=== PATIENT | female | born 1965 | race Caucasian/White ===

== ENCOUNTER 2023-04-20 08:27 | Outpatient (OUT) | payer OTHER, SELFPAY ==
[2023-04-20 09:24] LABS: Basophils Percent Auto 0.5 % (0.2-2.0); Eosinophils Absolute Auto 0.4 10^3/uL (0.0-0.7); Eosinophils Percent Auto 4.9 % (0.9-7.0); Hemoglobin 14.2 g/dL (12.0-16.0); Immature Granulocytes Abs Auto 0.02 10^3/uL (0.00-0.03); Immature Granulocytes Pct Auto 0.3 % (0.0-0.5); Lymphocytes Absolute Auto 2.1 10^3/uL (1.2-3.8); Lymphocytes Percent Auto 26.7 % (20.5-60.0); Mean Corpuscular Hemoglobin 30.3 pg (26.7-34.0); Mean Corpuscular Volume 91.7 fL (81.0-99.0); Mean Platelet Volume 10.1 fL (9.5-13.5); Monocytes Absolute Auto 0.5 10^3/uL (0.3-0.8); Monocytes Percent Auto 6.5 % (1.7-12.0); Neutrophils Absolute Auto 4.9 10^3/uL (1.4-6.5); Neutrophils Percent Auto 61.1 % (43.0-75.0); Platelet Count 324 10^3/uL (150-450); Red Blood Count 4.69 10^6/uL (4.20-5.40); Red Cell Distribution Width 12.4 % (11.0-15.0)
[2023-04-20 10:12] LABS: Alanine Aminotransferase 45 U/L (14-59); Albumin Globulin Ratio 0.9; Albumin Level 3.4 g/dL (3.4-5.0); Alkaline Phosphatase 95 U/L (46-116); Anion Gap 9.3; Aspartate Amino Transferase 27 U/L (15-37); BUN Creatinine Ratio 20.3; Bilirubin Total 0.4 mg/dL (0.2-1.0); Calcium 8.8 mg/dL (8.5-10.1); Carbon Dioxide 29.7 mmol/L (21.0-32.0); Chloride 100 mmol/L (98-107); Chol HDL Ratio 2.8; Cholesterol 159 mg/dL (<=200); Estimated GFR (African America >60 (>=60); Estimated GFR (Non-African Ame >60 (>=60); Globulin 3.7 g/dL; Glucose 110 mg/dL (74-106); HDL Cholesterol 56 mg/dL (40-60); LDL Cholesterol Calculated 83.8 mg/dL; Sodium 135 mmol/L (136-145); Thyroid Stimulating Hormone 2.327 uIU/mL (0.358-3.740); Total Protein 7.1 g/dL (6.4-8.2); Triglycerides 96 mg/dL (<=150); VLDL CHOLESTEROL 19.2 mg/dL
== END 2023-04-20 08:28 | disposition home or self-care (01) ==
LOC: LAB 08:33
PROVIDERS: PCP Internal Medicine; Visit Provider Internal Medicine
DX: Z00.00 Encounter for general adult medical examination without abnormal findings (principal)
CPT/HCPCS: 36415; 80053; 80061; 84443; 85025

== ENCOUNTER 2024-05-23 09:05 | Outpatient (OUT) | payer OTHER, SELFPAY ==
--- OUTSIDE RECORDS SUMMARY | 2024-05-23 09:08 | XMS_ITS | CCD ---
Author Organization [facility] Care Team Providers Care Internal Communications Writer Name Role Phone HUBER PINA Primary Care Physician RONNIEOTTO Admitting Unavailable RONNIEOTTO Attending Unavailable BALL, DR NGO Primary Care Unavailable BALL, DR NGO Admitting Unavailable BALL, DR NGO Attending Unavailable BALL, DR NGO Primary Care Unavailable BALL, DR NGO Consulting Unavailable BALL, DR NGO Admitting Unavailable BALL, DR NGO Attending Unavailable BALL, DR NGO Referring Unavailable BALL, DR NGO Primary Care Unavailable BALL, DR NGO Consulting Unavailable Ball, DO Huber Primary Care Provider [phone] Yovani, DO Ngo Other Provider Rinkes, DO Disha Attending Provider Huber Pina Unavailable Ball, DO Huber Primary Care Provider Yovani, DO Ngo Other Provider Rinkes, DO Disha Attending Provider Rinkes, DO Disha Referring Provider Disha Walker Attending Unavailable Rinsimi, Disha Referring Unavailable Ball, Huber Primary Care Unavailable Ball, Huebr Consulting Unavailable Rinkes, Disha Admitting Unavailable Ball, Huber Primary Care Unavailable Rinkes, Disha Admitting Unavailable Rinkes, Disha Attending Unavailable RINSIMI, DISHA E Attending Unavailable ORCK, DISHA E Referring Unavailable Allergies Allergy Classification Reported Allergen(s) Allergy Type Date of Onset Reaction(s) Facility (12 sources) Morphine; Translations: [morphine] Drug Allergy 1 Rash, Unknown [facility] (5 sources) Morphine Sulfate (Concentrate) *ANALGESICS - OPIOI Propensity to adverse reactions Unknown [employer] Other (5 sources) patient allergy list reviewed by nurse or physicia Propensity to adverse reactions Comment:Done [employer] Other (1 source) Morphine Drug Allergy [facility] Repository Medications Current Medications Medication Drug Class(es) Dates Sig (Normalized) Sig (Original) amitriptyline hydrochloride 50 mg oral tablet (2 sources) Tricyclic Antidepressant Start: 08-07-2011 take 1 tablet by mouth once daily at bedtime amitriptyline 50 mg Tab 50 mg = 1 tab(s), Oral, Once a day (at bedtime), # 30 tab(s), Refills(s) 0 Start Date: 08/07/11 Status: Ordered atorvastatin 40 mg oral tablet (9 sources) HMG-CoA Reductase Inhibitor Start: 12-26-2022 take 1 tablet by mouth every twenty-four hours Atorvastatin Calcium 40 MG 1 tablet Orally Once a day for 30 days Nov, Active B-12 1000 MCG (9 sources) take 1 tablet under the tongue once daily B-12 1000 MCG 1 tablet under the tongue and allow to dissolve Sublingual Once a day Active black cohosh extract 540 mg oral capsule (3 sources) Black Cohosh 540 MG as directed Orally Active estrogens, conjugated (nursing home) 0.45 mg oral tablet (4 sources) Estrogen Start: 07-15-2020 take 1 tablet by mouth once daily Conjugated Estrogens (Premarin) 0.45 mg tablet Active 0.45 MG PO Daily July 15, 2020 1:00am 1.5 ml fremanezumab-vfrm 150 mg/ml prefilled syringe (9 sources) Ajovy 225 MG/1.5 ML 1.5 mL Subcutaneous Active 24 hr propranolol hydrochloride 60 mg extended release oral capsule (4 sources) beta-Adrenergic Les Start: 07-15-2020 take 60 mg by mouth once daily Propranolol Active 60 MG PO Daily July 15, 2020 1:00am SUMAtriptan 100 mg oral tablet (12 sources) Serotonin-1b and Serotonin-1d Receptor Agonist Start: 08-07-2011 take 100 mg by mouth once daily Sumatriptan Succinate Active 100 MG PO Daily July 15, 2020 1:00am topiramate 100 mg oral tablet (2 sources) Start: 08-07-2011 take 1 tablet by mouth once daily Topamax 100 mg Tab 100 mg = 1 tab(s), Oral, Daily, # 30 tab(s), Refills(s) 0 Start Date: 08/07/11 Status: Ordered Completed/Discontinued Medications Medication Drug Class(es) Dates Sig (Normalized) Sig (Original) {1 (ascorbic acid 7540 MG / polyethylene glycol 3350 43887 MG / potassium chloride 1200 MG / sodium ascorbate 81907 MG / sodium chloride 3200 MG Powder for Oral Solution) / 1 (polyethylene glycol 3350 576429 MG / potassium chloride 1000 MG / sodium chloride 2000 MG / sodium sulfate 9000 MG Powder for Oral Solution) } Pack [Plenvu] (9 sources) Osmotic Laxative, Vitamin C Start: 06-15-2020 Plenvu 140 GM dose 1 pouch at 4pm, dose 2 pouch A & B at 11pm Orally BID for 1 days BIN:[id number] PCN: [id number] GROUP:[id number] ID:[id number] May, Not-Taking azithromycin 250 mg oral tablet (8 sources) Macrolide Antimicrobial Start: 03-20-2023 Azithromycin 250 MG as directed Orally daily for 5 days Mar, Not-Taking estradiol 0.5 mg oral tablet (9 sources) Estrogen take 1 tablet by mouth every twenty-four hours Estradiol 0.5 MG 1 tablet Orally Once a day Not-Taking metoclopramide 10 mg oral tablet (2 sources) Dopamine-2 Receptor Antagonist Start: 08-07-2011 End: 08-10-2011 take 1 tablet by mouth four times daily Reglan 10 mg Tab 10 mg = 1 tab(s), Oral, QID, # 12 tab(s), Refills(s) 0, 0, Print Requisition Start Date: 08/07/11 Stop Date: 08/10/11 Status: Ordered predniSONE 20 mg oral tablet (17 sources) Start: 01-11-2023 predniSONE 20 MG 1 tablet Orally tid w/ food x 3 days, then bid w/ food x 3 days then qd w/ food x 3 days for 9 days Jan, Not-Taking triamcinolone acetonide 40 mg/ml injectable suspension (9 sources) Corticosteroid Start: 01-11-2023 Kenalog-40 Dec, 60 mg Problems Active Problems Problem Classification Problem Date Documented Da te Episodic/Chronic Acute bronchitis (1 source) Acute bronchitis due to other specified organisms Episodic Allergic reactions (20 sources) Allergic contact dermatitis due to plants, except food; Translations: [Allergic contact dermatitis due to plants, except food] Onset: 12-04-2017 Episodic Disorders of lipid metabolism (20 sources) Pure hypercholesterolemi a, unspecified; Translations: [Hypercholesterolem ia] Onset: 07-12-2021 Chronic Headache; including migraine (20 sources) Migraine; Translations: [Migraine aura without headache ] Onset: 08-09-2017 09-11-2013 Chronic Malaise and fatigue (15 sources) Other fatigue; Translations: [Fatigue] Onset: 07-17-2021 Episodic Menopausal disorders (19 sources) Menopausal symptom; Translations: [Menopausal and female climacteric states] Onset: 08-09-2017 Chronic Other and unspecified benign neoplasm (17 sources) Polyp of colon; Translations: [Polyp of colon] Episodic Other and unspecified benign neoplasm (9 sources) Lipoma of left lower limb; Translations: [Benign lipomatous neoplasm of skin and subcutaneous tissue of left leg] Episodic Other and unspecified benign neoplasm (5 sources) Benign lipomatous tumor; Translations: [Benign lipomatous neoplasm of skin and subcutaneous tissue of left leg] Episodic Other and unspecified benign neoplasm (1 source) Polyp of colon Episodic Other gastrointestinal disorders (4 sources) Stool DNA-based colorectal cancer screening positive; Translations: [Other fecal abnormalities] 07-15-2020 Episodic Other gastrointestinal disorders (5 sources) Abnormal feces; Translations: [Other fecal abnormalities] Episodic Other nutritional; endocrine; and metabolic disorders (5 sources) Overweight; Translations: [Overweight] Episodic Unclassified (1 source) ELEV LVLS LIVER TRANSAMINASE LVLS; Translations: [ELEV LVLS LIVER TRANSAMINASE LVLS] Onset: 07-17-2021 Unclassified (5 sources) Elevation of levels of liver transaminase levels; Translations: [Elevation of levels of liver transaminase levels] Unclassified (1 source) Encounter for screening mammogram for malignant neoplasm of breast; Translations: [Encounter for screening mammogram for malignant neoplasm of breast] Onset: 04-25-2023 Past or Other Problems Problem Classification Problem Date Documented Date Episodic/Chronic Inflammation; infection of eye (except that caused by tuberculosis or sexually transmitteddisease) (5 sources) Viral pharyngoconjunctivitis ; Translations: [Viral pharyngoconjunctivitis] Onset: 03-08-20 19 Episodic Open wounds of extremities (5 sources) Laceration of lower leg; Translations: [Laceration without foreign body, right lower leg, subsequent encounter] Resolved : 04-14-20 Episodic Other nutritional; endocrine; and metabolic disorders (20 sources) Body mass index 25-29 - overweight; Translations: [Body mass index 25.0-25.9, adult] Onset: 08-09-19 18 Episodic Other screening for suspected conditions (not mental disorders or infectious disease) (2 sources) Encounter for screening mammogram for malignant neoplasm of breast; Translations: [Other abnormal and inconclusive findings on diagnostic imaging of breast] Onset: 04-30-20 Episodic Residual codes; unclassified (5 sources) Flushing; Translations: [Flushing] Onset: 10-10-19 Episodic Skin and subcutaneous tissue infections (5 sources) Cellulitis of right lower limb; Translations: [Cellulitis of right lower limb] Resolved : 04-14-20 Episodic Spondylosis; intervertebral disc disorders; other back problems (5 sources) Low back pain; Translations: [Low back pain, unspecified] Resolved : 04-14-20 Episodic Sprains and strains (5 sources) Strain of tendon of foot and ankle; Translations: [Strain of unspecified muscle and tendon at ankle and foot level, left foot, subsequent encounter] Resolved : 04-14-20 Episodic Superficial injury; contusion (5 sources) Abrasion, lower leg; Translations: [Abrasion, right lower leg, subsequent encounter] Resolved : 04-14-20 Episodic Unclassified (9 sources) Elevated transaminase level; Translations: [Elevated transaminase level] Unclassified (5 sources) Genetic counseling; Translations: [Genetic counseling] Onset: 08-09-19 Results Test Name Value Interpretation Reference Range Facility MM screening mammo BI w/CADo n 04-25-2023 MM screening mammo BI w/CAD [facility] [place] [address] Mammography Report Signed Patient: Urmila Wu MR#: [id number] : 1965 Acct:[id number] Age/Sex: 57 / F ADM Date: 04/25/23 Loc: [place] Room: Type: [facility] Attending Dr: Disha Walker DO Copies to: Huber DO Disha Pina DO Ordering Provider: Disha Walker DO Date of Service: 04/25/23 MM/MM screening mammo BI w/CAD: screening;Breast cancer screening CLINICAL DATA: Screening for malignancy. SCREENING MAMMOGRAM - FULL FIELD DIGITAL WITH TOMOSYNTHESIS AND CAD COMPARISON:Mammograms dating back to 2019 Tomosynthesis craniocaudal and mediolateral oblique views of both breasts were obtained using low- dose digital technique. This examination was reviewed with the aid of CAD. The breast parenchyma is heterogeneously dense. There are no dominant masses, typically malignant calcifications or architectural distortion. There has been no significant interval change. MM/MM screening mammo BI w/CAD IMPRESSION: NO MAMMOGRAPHIC EVIDENCE OF MALIGNANCY. ROUTINE FOLLOW-UP IS RECOMMENDED IN ONE YEAR. RESULT CODE: 1 Negative DENSITY CODE: 3 (approximately 51-75% glandular) FOLLOW UP: 1YR The false-negative rate of mammography is approximately 10-percent. Management of a palpable abnormality must be based on clinical grounds. Patient was entered into a reminder system with a target due date for the next mammogram. Impression dictated by: Travis Hernadez Jr., Alan04/25/2023 3:29 PM Dictation Location: [facility] Transcribed By: [facility] 04/25/231528 Dictated By: Travis Hernadez Jr, DO 04/25/231527 Signed By: 04/25/23 152 [facility] MM special view RT w/CADon 1 MM special view RT w/CAD [facility] [place] [address] Mammography Report Signed Patient: Urmila Wu MR#: [id number] : 1965 Acct:[id number] Age/Sex: 56 / F ADM Date: 04/30/22 Loc: [place] Room: Type: [facility] Attending Dr: Disha Walker DO Copies to: DO Disha Montez DO Ordering Provider: Disha Walker DO Date of Service: 04/30/22 MM/MM special view RT w/CAD: R92.8 CLINICAL DATA: Call back asymmetry right breast RightDIAGNOSTIC MAMMOGRAM - WITH TOMOSYNTHESIS AND CAD COMPARISON:Mammograms dating back to 2018. Tomosynthesis imaging was obtained using low-dose digital technique. This examination was reviewed with the aid of CAD. FINDINGS: The right breast is composed of heterogeneously dense tissue. The previously identified asymmetry compresses out on the spot compression view suggestive of overlapping stroma. MM/MM special view RT w/CAD IMPRESSION: NO MAMMOGRAPHIC EVIDENCE OF MALIGNANCY. ROUTINE FOLLOW-UP IS RECOMMENDED IN ONE YEAR. RESULT CODE: 1 Negative DENSITY CODE: 3 (approximately 51-75% glandular) FOLLOW UP: 1YR The false-negative rate of mammography is approximately 10-percent. Management of a palpable abnormality must be based on clinical grounds. Patient was entered into a reminder system with a target due date for the next mammogram. Impression dictated by: Travis Hernadez Jr., D.O.04/30/2022 3:20 PM Dictation Location: [facility] Transcribed By: FREDA 04/30/22 1520 Dictated By: Travis Hernadez Jr, DO 04/30/22 1505 Signed By: 04/30/22 1520 Normal [facility] Albumin [Mass/volume] in Ser um or PlasmaOrdered By: Huber Pina on 04-23-2022 Albumin [Mass/Vol] 3.8 g/dL 3.2-5.5 [facility] Basophils Auto (Bld) [#/Vol] Ordered By: Huber Pina on 04-23-2022 Basophils (Bld) [#/Vol] 0.0 10*3/uL 0.0-0.2 [facility] Basophils/100 WBC Auto (Bld) Ordered By: Huber Pina on 04-23-2022 Basophils/100 WBC (Bld) 0.6 % . [facility] Cholesterol [Mass/volume] in Serum or PlasmaOrdered By: Huber Pina on 04-23-2022 Cholesterol [Mass/Vol] 174 mg/dL 140-200 [facility] Comment on above: Chol less than 200 m g/dl low riskChol 201-239 mg/dl borderline riskChol 240 mg/dl and greater high risk Cholesterol in LDL Calc [Mas s/Vol]Ordered By: Huber Pina on 04-23-2022 Cholesterol in LDL [Mass/Vol] 82 mg/dL 0-100 [facility] Comment on above: LDL ATP III CLASSIFI CATIONLDL less than 100 mg/dL OptimalLDL 100-129 mg/dL Near or above optimalLDL 130-159 mg/dL Borderline highLDL 160-189 mg/dL HighLDL greater than 189 mg/dL Very high Cholesterol in VLDL Calc [Ma ss/Vol]Ordered By: Huber Pina on 04-23-2022 Cholesterol in VLDL [Mass/Vol] 23 mg/dL [facility] Creatinine and Glomerular fi ltration rate.predicted panel (S/P/Bld)Ordered By: Huber Pina on 04-23-2022 Creatinine [Mass/Vol] 0.86 mg/dL 0.44-1.03 [facility] Eosinophils Auto (Bld) [#/Vo l]Ordered By: Huber Pina on 04-23-2022 Eosinophils (Bld) [#/Vol] 0.3 10*3/uL 0.0-0.45 [facility] Eosinophils/100 WBC Auto (Bl d)Ordered By: Huber Pina on 04-23-2022 Eosinophils/100 WBC (Bld) 5.0 % . [facility] Erythrocyte distribution wid th Auto (RBC) [Ratio]Ordered By: Huber Pina on 04-23-2022 Erythrocyte distribution width (RBC) [Ratio] 12.7 % 11.9-15.3 [facility] Estimated glomerular filtrat ion rate (GFR) non- AmericanOrdered By: Huber Pina on 04-23-2022 GFR/1.73 sq M.predicted among non-blacks MDRD (S/P/Bld) [Vol rate/Area] > 60 mL/Min [facility] Globulin Calc (S) [Mass/Vol] Ordered By: Huber Pina on 04-23-2022 Globulin (S) [Mass/Vol] 2.5 g/dL [facility] Hematocrit Auto (Bld) [Volum e fraction]Ordered By: Huber Pina on 04-23-2022 Hematocrit (Bld) [Volume fraction] 45.4 % 34.0-46.4 [facility] Hemoglobin [Mass/volume] in BloodOrdered By: Huber Pina on 04-23-2022 Hemoglobin (Bld) [Mass/Vol] 15.0 g/dL 11.8-15.4 [facility] Laboratory - Chemistry and C hemistry - challengeOrdered By: Huber Pina on 04-23-2022 Cobalamin (Vitamin B12) [Mass/Vol] 230 pg/mL 180-914 [facility] Laboratory - Hematology and Cell countsOrdered By: Huber Pina on 04-23-2022 Nucleated RBC/100 WBC (Bld) [Ratio] 0.1 % 0-0.5 [facility] Leukocytes [#/volume] in Blo od by Automated countOrdered By: Huber Pina on 04-23-2022 WBC (Bld) [#/Vol] 6.5 10*3/uL 4.5-11.0 [facility] Lymphocytes Auto (Bld) [#/Vo l]Ordered By: Huber Pina on 04-23-2022 Lymphocytes (Bld) [#/Vol] 2.0 10*3/uL 1.00-4.8 [facility] Lymphocytes/100 WBC Auto (Bl d)Ordered By: Huber Pina on 04-23-2022 Lymphocytes/100 WBC (Bld) 31.1 % . [facility] MCH Auto (RBC) [Entitic mass ]Ordered By: Huber Pina on 04-23-2022 MCH (RBC) [Entitic mass] 30.4 pg 24.7-34.3 [facility] MCHC Auto (RBC) [Mass/Vol]Or dered By: Huber Pina on 04-23-2022 MCHC (RBC) [Mass/Vol] 33.1 g/dL 32.0-35.0 [facility] MCV Auto (RBC) [Entitic vol] Ordered By: Huber Pina on 04-23-2022 MCV (RBC) [Entitic vol] 91.8 fL 80-100 [facility] Monocytes Auto (Bld) [#/Vol] Ordered By: Huber Pina on 04-23-2022 Monocytes (Bld) [#/Vol] 0.4 10*3/uL 0.0-0.8 [facility] Monocytes/100 WBC Auto (Bld) Ordered By: Huber Pina on 04-23-2022 Monocytes/100 WBC (Bld) 6.5 % . [facility] Neutrophils Auto (Bld) [#/Vo l]Ordered By: Huber Pina on 04-23-2022 Neutrophils (Bld) [#/Vol] 3.7 10*3/uL 1.8-7.7 [facility] Neutrophils/100 WBC Auto (Bl d)Ordered By: Huber Pina on 04-23-2022 Neutrophils/100 WBC (Bld) 56.8 % . [facility] No Panel InformationOrdered By: Huber Pina on 04-23-2022 25-Hydroxy Vitamin D Total 35.9 ng/mL 30-100 [facility] Comment on above: VITAMIN D STATUS 25( OH)VITAMIN D RANGE (ng/mL) Deficient <20 Insufficient 20 to <30Sufficient 30 to 100Reference: Gil MF,Esequiel MALIK, Kevin DAWSON, et al. Evaluation,treatment, and prevention of vitamin D deficiency; an Endocrine Society clinical practice guideline. JCEM. 2010; 96(7):1911-30. Estimated GFR () > 60 mL/Min [facility] Comment on above: GFR estimated refere nce range: According to KDOQI guidelines, <60 ml/min/1.73m2 is sufficient to diagnose a patient with chronic kidney disease. Pharmacy Creatinine Clearance (Chem N/A [facility] Platelet mean volume Auto (B ld) [Entitic vol]Ordered By: Huber Pina on 04-23-2022 Platelet mean volume (Bld) [Entitic vol] 8.7 fL 6.3-10.7 [facility] Platelets Auto (Bld) [#/Vol] Ordered By: Huber Pina on 04-23-2022 Platelets (Bld) [#/Vol] 327 10*3/uL 150-450 [facility] Protein [Mass/volume] in Ser um or PlasmaOrdered By: Huber Pina on 04-23-2022 Protein [Mass/Vol] 6.3 g/dL 6.1-7.9 [facility] RBC Auto (Bld) [#/Vol]Ordere d By: Huber Pina on 04-23-2022 RBC (Bld) [#/Vol] 4.95 10*6/uL 3.60-5.00 [facility] Serum or plasma alanine mendoza otransferase measurement without P-5'-P (enzymatic activiOrdered By: Huber Pina on 04-23-2022 ALT No additional P-5'-P [Catalytic activity/Vol] 36 U/L [facility] Serum or plasma albumin/glob ulin mass ratioOrdered By: Huber Pina on 04-23-2022 Albumin/Globulin [Mass ratio] 1.5 {ratio} [facility] Serum or plasma alkaline virgen sphatase measurement (enzymatic activity/volume)Ordered By: Huber Pina on 04-23-2022 ALP [Catalytic activity/Vol] 74 U/L 32-92 [facility] Serum or plasma anion gap de terminationOrdered By: Huber Pina on 04-23-2022 Anion gap [Moles/Vol] 15.2 mmol/L 6.0-15.0 [facility] Serum or plasma aspartate am inotransferase measurement (enzymatic activity/volume)Ordered By: Huber Pina on 04-23-2022 AST [Catalytic activity/Vol] 33 U/L 10 [facility] Serum or plasma calcium baudilio urement (mass/volume)Ordered By: Huber Pina on 04-23-2022 Calcium [Mass/Vol] 9.5 mg/dL 8.2-10.2 [facility] Serum or plasma chloride gordo surement (moles/volume)Ordered By: Huber Pina on 04-23-2022 Chloride [Moles/Vol] 101 mmol/L 95-114 [facility] Serum or plasma glucose baudilio urement (mass/volume)Ordered By: Huber Pina on 04-23-2022 Glucose [Mass/Vol] 114 mg/dL 70-100 [facility] Comment on above: ADA recommended refe rence rangeRandom Glucose Reference Range is dependent on time and content of last meal. Glucose of more than 200 mg/dL in a nonstressed, ambulatory subject supports the diagnosis of Diabetes Mellitus. Serum or plasma high density lipoprotein (HDL) cholesterol measurementOrdered By: Huber Pina on 04-23-2022 Cholesterol in HDL [Mass/Vol] 68 mg/dL 35-85 [facility] Comment on above: HDL CHOL ATP-III CLA SSIFICATION Cardiovascular RiskHDL > or equal to 60 mg/dL LOWHDL < 40 mg/dL HIGH Serum or plasma potassium me asurement (moles/volume)Ordered By: Huber Pina on 04-23-2022 Potassium [Moles/Vol] 4.2 mmol/L 3.5-5.1 [facility] Serum or plasma sodium measu rement (moles/volume)Ordered By: Huber Pina on 04-23-2022 Sodium [Moles/Vol] 137 mmol/L 136-146 [facility] Serum or plasma total biliru bin measurement (mass/volume)Ordered By: Huber Pina on 04-23-2022 Bilirubin [Mass/Vol] 0.5 mg/dL 0.3-1.2 [facility] Serum or plasma total carbon dioxide measurement (moles/volume)Ordered By: Huber Pina on 04-23-2022 CO2 [Moles/Vol] 25.0 mmol/L 22.0-30.0 [facility] Serum or plasma total choles terol/high density lipoprotein (HDL) cholesterol mass ratOrdered By: Huber Pina on 04-23-2022 Cholesterol.total/Choles terol in HDL [Mass ratio] 2.6 {ratio} <5.0 [facility] Serum or plasma urea nitroge n measurement (mass/volume)Ordered By: Huber Pina on 04-23-2022 Urea nitrogen [Mass/Vol] 18 mg/dL 9-23 [facility] Triglyceride [Mass/volume] i n Serum or PlasmaOrdered By: Huber Pina on 04-23-2022 Triglyceride [Mass/Vol] 118 mg/dL 35-149 [facility] Comment on above: TRIG ATP III CLASSIF ICATIONTRIG less than 150 mg/dL NormalTRIG 150-199 mg/dL Borderline highTRIG 200-500 mg/dL High TRIG greater than 500 mg/dL Very highStandard traceable to the Center for Disease Conrtrol and Prevention (CDC) test method. CT Head or Brain w/o Contras ton 02-09-2022 CT Head or Brain w/o Contrast Exam Date/Time: 02/08/2022 14:08 EDT Reason for Exam: G31.84 Mild cognitive impairment, so stated Report IMPRESSION: NEGATIVE NONCONTRAST HEAD CT. EXAM: CT Head or Brain w/o Contrast DATE: 02/08/2022 CLINICAL HISTORY: G31.84 Mild cognitive impairment, so stated. COMPARISON: None available. TECHNIQUE: Routine. All CT scans at this facility use dose modulation, iterative reconstruction, and/or weight based dosing when appropriate to reduce radiation dose to as low as reasonably achievable. FINDINGS: There is no intracranial hemorrhage, mass effect, midline shift, extra-axial collection, evidence of hydrocephalus, skull fracture, or a recent ischemic infarct identified. There is no significant atrophy, or white matter changes, for age. The mastoid air cells and visualized paranasal sinuses are essentially clear. FINAL REPORT Dictated: 02/09/2022 5:19 am Arnulfo Naranjo MD Signed (Electronic Signature): 02/09/2022 5:19 am Signed by: Arnulfo Naranjo MD Transcribed by: JOHANNY Technologist: [facility] Consent for Treatmenton 01-29 Consent for Treatment [id number] .[id number]:127 [facility] Physician Orderon 01-31-2022 Physician Order [id number] .[id number]:127 [facility] Consent for Treatmenton 11-30 Consent for Treatment [id number] .[id number]:127 [facility] RAD - MRI Screening Formon 0 12-26-2021 RAD - MRI Screening Form [id number] .[id number]:127 [facility] Physician Orderon 12-18-2021 Physician Order [id number] .[id number]:127 [facility] FERRITINon 07-13-2021 Ferritin [Mass/Vol] 56 ng/mL Normal 15-[address] [facility] Comment on above: Performed By: #### F ERRLC #### [facility] [address] [place] [address] Dr. Martha Chung HEP A AB TOTALon 07-13-2021 Hep A Ab, Total Negative Normal Negative [facility] Comment on above: Performed By: #### F ERRLC #### [facility] [address] [address] [address] Martha Chung HEP B COREon 07-13-2021 Hep B Core Ab, Tot Negative Normal Negative [facility] Comment on above: Performed By: #### F ERRLC #### [facility] [address] [address] [address] Martha Chung HEP B SURFACE ANTIGEN SCREEN on 07-13-2021 HBsAg Screen Negative Normal Negative [facility] Comment on above: Performed By: #### F ERRLC #### [facility] [address] [place] [address] Dr. Martha Chung HEPATITIS A AB IGMon 022 Hep A Ab, IgM Negative Normal Negative [facility] Comment on above: Performed By: #### H EPBCOR, HEPAIGM #### [facility] [address] [place] [address] Dr. Martha Chung HEPATITIS B CORE, IgMon 07-01 Hep B Core Ab, IgM Negative Normal Negative [facility] Comment on above: Performed By: #### H EPBCOR, HEPAIGM #### [facility] [address] [place] [address] Dr. Martha Chung HEPATITIS B SURFACE ANTIBODY , QUANTon 07-13-2021 Hepatitis B Surf AB Quant 786.0 mIU/mL Normal Immunity>9.9 [facility] Comment on above: Result Comment: Stat us of Immunity Anti-HBs Level Inconsistent with Immunity 0.0 - 9.9 Consistent with Immunity >9.9 Performed By: #### F ERRLC #### [facility] [address] [place] [address] Dr. Martha Chung HEPATITIS C ANTIBODYon 07-13 Hep C Virus Ab <0.1 Normal 0.0-0.9 [facility] Comment on above: Result Comment: Nega tive: < 0.8 Indeterminate: 0.8 - 0.9 Positive: > 0.9 . The CDC recommends that a positive HCV antibody result be followed up with a HCV Nucleic Acid Amplification test (386962). Performed By: #### F ERRLC #### [facility] [address] [place] [address] Dr. Martha Chung DIRECT LDLon 07-12-2021 Cholesterol in LDL [Mass/Vol] 92 mg/dL Normal [facility] Comment on above: Performed By: #### T NGOZI DLDL, LIVER #### [facility] [address] [place] [address] Dr. Martha Chung DLDL NORMAL SEE BELOW Normal [facility] Comment on above: Result Comment: <100 mg/dl OPTIMAL 100 - 129 mg/dl NEAR OR ABOVE OPTIMAL 130 - 159 mg/dl BORDERLINE HIGH 160 - 189 mg/dl HIGH >190 mg/dl VERY HIGH Performed By: #### T NGOZI DLDL, LIVER #### [facility] [address] [place] [address] Dr. Martha Chung IRON AND TIBCon 07-12-2021 % SATURATION 28.3 % Normal [facility] Comment on above: Performed By: #### F ETIBC #### [facility] [address] [place] [address] Dr. Martha Chung Iron [Mass/Vol] 108.0 ug/dL Normal 37.0-170.0 [facility] Comment on above: Performed By: #### F ETIBC #### [facility] [address] [place] [address] Dr. Martha Chung TIBC DIRECT 382.0 ug/dL Normal 261.0-497.0 [facility] Comment on above: Performed By: #### F ETIBC #### [facility] [address] [place] [address] Dr. Martha Chung LIVER PROFILEon 07-12-2021 Albumin [Mass/Vol] 4.2 g/dL Normal 3.5-5.0 [facility] Comment on above: Performed By: #### T NGOZI DLDL, LIVER #### [facility] [address] [place] [address] Dr. Martha Chung Albumin/Globulin [Mass ratio] 1.1 {ratio} Normal [facility] Comment on above: Performed By: #### T NGOZI DLDL, LIVER #### [facility] [address] [address] [address] Martha Chung ALP [Catalytic activity/Vol] 97 U/L Normal 38-126 [facility] Comment on above: Performed By: #### T NGOZI DLDL, LIVER #### [facility] [address] [address] [address] Martha Chung ALT [Catalytic activity/Vol] 40 U/L Normal 9-52 [facility] Comment on above: Performed By: #### T SUBHA MELVINL, LIVER #### [facility] [address] [place] [address] Dr. Martha Chung AST [Catalytic activity/Vol] 29 U/L Normal 14-36 [facility] Comment on above: Performed By: #### T SUBHA MELVINL, LIVER #### [facility] [address] [place] [address] Dr. Martha Chung BILI, CONJUGATED 0.1 mg/dL Normal 0.0-0.3 [facility] Comment on above: Performed By: #### T SUBHA MELVINL, LIVER #### [facility] [address] [place] [address] Dr. Martha Chung Bilirubin [Mass/Vol] 0.5 mg/dL Normal 0.2-1.3 [facility] Comment on above: Performed By: #### T NGOZI DLDL, LIVER #### [facility] [address] [place] [address] Dr. Martha Chung Globulin (S) [Mass/Vol] 3.8 g/dL Normal [facility] Comment on above: Performed By: #### T NGOZI DLDL, LIVER #### [facility] [address] [place] [address] Dr. Martha Chung Protein [Mass/Vol] 8.0 g/dL Normal 6.1-8.2 [facility] Comment on above: Performed By: #### T NGOZI DLDL, LIVER #### [facility] [address] [place] [address] Dr. Martha Chung TSHon 07-12-2021 TSH 2.408 uIU/mL Normal 0.470-4.680 [facility] Comment on above: Performed By: #### T NGOZI, DLDL, LIVER #### [facility] [address] [place] [address] Dr. Martha Chung TSH RANGE SEE BELOW Normal [facility] Comment on above: Result Comment: <0.3 4 UIU/ml HYPERTHYROID 0.34-5.60 UIU/ml EUTHYROID >5.60 UIU/ml HYPOTHYROID Performed By: #### T MARCELLO MELVIN, LIVER #### [facility] [address] [place] [address] Dr. Martha Chung CBC AUTO DIFFon 04-14-2021 BASO # 0.1 103/ul Normal 0.0-0.1 [facility] Comment on above: Performed By: #### C BC #### [facility] [address] [place] [address] Dr. Martha Chung Basophils/100 WBC (Bld) 0.7 % Normal 0.2-2.0 [facility] Comment on above: Performed By: #### C BC #### [facility] [address] [place] [address] Dr. Martha Chung EO # 0.3 103/ul Normal 0.0-0.7 [facility] Comment on above: Performed By: #### C BC #### [facility] [address] [place] [address] Dr. Martha Chung Eosinophils/100 WBC (Bld) 4.6 % Normal 0.9-7.0 [facility] Comment on above: Performed By: #### C BC #### [facility] [address] [place] [address] Dr. Martha Chung Erythrocyte distribution width (RBC) [Ratio] 12.8 % Normal 11.0-15.0 [facility] Comment on above: Performed By: #### C BC #### [facility] [address] [place] [address] Dr. Martha Chugn Hematocrit (Bld) [Volume fraction] 46.7 % Normal 36.0-48.0 [facility] Comment on above: Performed By: #### C BC #### [facility] [address] [place] [address] Dr. Martha Chung Hemoglobin (Bld) [Mass/Vol] 15.3 g/dL Normal 12.0-16.0 [facility] Comment on above: Performed By: #### C BC #### [facility] [address] [place] [address] Dr. Martha Chung IG # 0.02 10e3/ul Normal 0.00-0.03 [facility] Comment on above: Performed By: #### C BC #### [facility] [address] [place] [address] Dr. Martha Chung IG % 0.3 % Normal 0.0-0.5 [facility] Comment on above: Performed By: #### C BC #### [facility] [address] [place] [address] Dr. Martha Chung LYMPH # 1.8 103/ul Normal 1.2-3.8 [facility] Comment on above: Performed By: #### C BC #### [facility] [address] [place] [address] Dr. Martha Chung Lymphocytes/100 WBC (Bld) 25.8 % Normal 20.5-60.0 [facility] Comment on above: Performed By: #### C BC #### [facility] [address] [place] [address] Dr. Martha Chung MANUAL DIFF REQ NO Normal [facility] Comment on above: Performed By: #### C BC #### [facility] [address] [place] [address] Dr. Martha Chung MCH (RBC) [Entitic mass] 30.1 pg Normal 26.7-34.0 [facility] Comment on above: Performed By: #### C BC #### [facility] [address] [place] [address] Dr. Martha Chung MCHC (RBC) [Mass/Vol] 32.8 g/dL Normal 29.9-35.2 [facility] Comment on above: Performed By: #### C BC #### [facility] [address] [place] [address] Dr. Martha Chung MCV (RBC) [Entitic vol] 91.7 fL Normal 81.0-99.0 [facility] Comment on above: Performed By: #### C BC #### [facility] [address] [place] [address] Dr. Martha Chung MONO # 0.5 103/ul Normal 0.3-0.8 [facility] Comment on above: Performed By: #### C BC #### [facility] [address] [place] [address] Dr. Martha Chung Monocytes/100 WBC (Bld) 7.6 % Normal 1.7-12.0 [facility] Comment on above: Performed By: #### C BC #### [facility] [address] [place] [address] Dr. Martha Chung NEUT # 4.2 103/ul Normal 1.4-6.5 [facility] Comment on above: Performed By: #### C BC #### [facility] [address] [place] [address] Dr. Martha Chung Neutrophils/100 WBC (Bld) 61.0 % Normal 43.0-75.0 [facility] Comment on above: Performed By: #### C BC #### [facility] [address] [place] [address] Dr. Martha Chung Platelet mean volume (Bld) [Entitic vol] 10.2 fL Normal 9.5-13.5 [facility] Comment on above: Performed By: #### C BC #### [facility] [address] [place] [address] Dr. Martha Chung PLT 304 103/ul Normal 150-450 [facility] Comment on above: Performed By: #### C BC #### [facility] [address] [place] [address] Dr. Martha Chung RBC 5.09 106/ul Normal 4.20-5.40 [facility] Comment on above: Performed By: #### C BC #### [facility] [address] [address] [address] Martha Chung WBC 6.8 103/ul Normal 4.0-11.0 [facility] Comment on above: Performed By: #### C BC #### [facility] [address] [address] [address] Martha Chung LIPID PROFILEon 04-14-2021 CHOL-HDL RATIO NORM SEE BELOW Normal [facility] Comment on above: Result Comment: 3.3 - 4.4 LOW RISK 4.4 - 7.1 AVERAGE RISK 7.1 - 11.0 MODERATE RISK >11.0 HIGH RISK Performed By: #### C MP, LIPID #### [facility] [address] [place] [address] Dr. Martha Chung Cholesterol [Mass/Vol] 316 mg/dL Critically high <=200 [facility] Comment on above: Performed By: #### C MP, LIPID #### [facility] [address] [place] [address] Dr. aMrtha Chung Cholesterol in HDL [Mass/Vol] 64 mg/dL Normal [facility] Comment on above: Performed By: #### C MP, LIPID #### [facility] [address] [place] [address] Dr. Martha Chung Cholesterol in LDL [Mass/Vol] 208.4 mg/dL Normal [facility] Comment on above: Performed By: #### C MP, LIPID #### [facility] [address] [address] [address] Martha Chung Cholesterol.total/Choles terol in HDL [Mass ratio] 4.9 {ratio} Normal [facility] Comment on above: Performed By: #### C MP, LIPID #### [facility] [address] [place] [address] Dr. Martha Chung HDL NORMAL > or = 60 mg/dl - LO W CARDIOVASCULAR RISK <40 mg/dl - HIGH CARDIOVASCULAR RISK Normal [facility] Comment on above: Performed By: #### C MP, LIPID #### [facility] [address] [place] [address] Dr. Martha Chung LDL CALC NORMAL SEE BELOW Normal [facility] Comment on above: Result Comment: <100 mg/dl OPTIMAL 100 - 129 mg/dl NEAR OR ABOVE OPTIMAL 130 - 159 mg/dl BORDERLINE HIGH 160 - 189 mg/dl HIGH >190 mg/dl VERY HIGH Performed By: #### C MP, LIPID #### [facility] [address] [address] [address] Martha Chung Triglyceride [Mass/Vol] 218 mg/dL Critically high <=150 [facility] Comment on above: Performed By: #### C MP, LIPID #### [facility] [address] [address] [address] Martha Chung VLDL CALC 43.6 mg/dL Normal [facility] Comment on above: Performed By: #### C MP, LIPID #### [facility] [address] [address] [address] Martha Chung PROF 14(COMP METB)on 021 Albumin [Mass/Vol] 4.0 g/dL Normal 3.5-5.0 [facility] Comment on above: Performed By: #### C MP, LIPID #### [facility] [address] [address] [address] Martha Chung Albumin/Globulin [Mass ratio] 1.0 {ratio} Normal [facility] Comment on above: Performed By: #### C MP, LIPID #### [facility] [address] [address] [address] Martha Chung ALP [Catalytic activity/Vol] 84 U/L Normal 38-126 [facility] Comment on above: Performed By: #### C MP, LIPID #### [facility] [address] [address] [address] Martha Chung ALT [Catalytic activity/Vol] 95 U/L Critically high 9-52 [facility] Comment on above: Performed By: #### C MP, LIPID #### [facility] [address] [address] [address] Martha Chung Anion gap [Moles/Vol] 10.2 mmol/L Normal [facility] Comment on above: Performed By: #### C MP, LIPID #### [facility] [address] [address] [address] Martha Chung AST [Catalytic activity/Vol] 56 U/L Critically high 14-36 [facility] Comment on above: Performed By: #### C MP, LIPID #### [facility] [address] [address] [address] Martha Chung Bilirubin [Mass/Vol] 0.5 mg/dL Normal 0.2-1.3 [facility] Comment on above: Performed By: #### C MP, LIPID #### [facility] [address] [address] [address] Martha Chung Calcium [Mass/Vol] 9.2 mg/dL Normal 8.4-10.2 [facility] Comment on above: Performed By: #### C MP, LIPID #### [facility] [address] [address] [address] Martha Chung Chloride [Moles/Vol] 100 mmol/L Normal 98-107 [facility] Comment on above: Performed By: #### C MP, LIPID #### [facility] [address] [address] [address] Martha Chung CO2 [Moles/Vol] 30.2 mmol/L Critically high 22.0-30.0 [facility] Comment on above: Performed By: #### C MP, LIPID #### [facility] [address] [address] [address] Martha Chung Creatinine [Mass/Vol] 0.72 mg/dL Normal 0.52-1.04 [facility] Comment on above: Performed By: #### C MP, LIPID #### [facility] [address] [address] [address] Martha Chung EGFR-AF FINNISH >60 Normal >=60 [facility] Comment on above: Performed By: #### C MP, LIPID #### [facility] [address] [place] [address] Dr. Martha Chung EGFR-NON AF FINNISH >60 Normal >=60 [facility] Comment on above: Performed By: #### C MP, LIPID #### [facility] [address] [address] [address] Martha Chung Globulin (S) [Mass/Vol] 3.9 g/dL Normal [facility] Comment on above: Performed By: #### C MP, LIPID #### [facility] [address] [address] [address] Martha Chung Glucose [Mass/Vol] 95 mg/dL Normal 74-106 [facility] Comment on above: Performed By: #### C MP, LIPID #### [facility] [address] [address] [address] Martha Chung Potassium [Moles/Vol] 4.4 mmol/L Normal 3.4-5.0 [facility] Comment on above: Performed By: #### C MP, LIPID #### [facility] [address] [place] [address] Dr. Martha Chung Protein [Mass/Vol] 7.9 g/dL Normal 6.1-8.2 [facility] Comment on above: Performed By: #### C MP, LIPID #### [facility] [address] [place] [address] Dr. Martha Chung Sodium [Moles/Vol] 136 mmol/L Critically low 137-145 [facility] Comment on above: Performed By: #### C MP, LIPID #### [facility] [address] [place] [address] Dr. Martha Chung Urea nitrogen [Mass/Vol] 15.0 mg/dL Normal 7.0-17.0 [facility] Comment on above: Performed By: #### C MP, LIPID #### [facility] [address] [place] [address] Dr. Martha Chung Urea nitrogen/Creatinine [Mass ratio] 20.8 mg/mg Normal [facility] Comment on above: Performed By: #### C MP, LIPID #### [facility] [address] [place] [address] Dr. Martha Chung Coding Summaryon 12-16-2020 Coding Summary HTMLBase 64 VlupaxuiTUo2pTb+PGhlY WQ+UX9LEHEbV56zxUOfdK 1ZV3eEVZ8WBEHHSSOFCQ8 KFG5sfLA3IRenN9RmqgWe TzrlwRZeJG53ZSz2RIR3n DvgYZzyaV2ycORwY4z6Yq GoAO67rN41PWsdLKDxDbS 3LjZpbjsgbWFy V3dnAoTrzQInLxt+PHRhY mxlIHdpZHRoPScxMDAlJy CcvPakWY7cYm9lOLNsNZQ vbGxhcHNlOiBj s3asOHBuROndEO4hcJdmD 1ZzdMK8QZZfd2i8Wr30mD I+DQPnVGT1mZcfLBzix25 4BcVdg0wjWFU0 uNBaIYqzGCO8U11ez1X0R LSqECZaNXE7fZN4dM9ukA synjdvV1KwsFDhHuA9RMS 5xQPiuL5niLky dvtehK4nPpo+M35LRR6UH BTFBW7MNbw9F9OlYmblqU I+AW74MTCiQZ16aSHqaGO kh5pefIw5LpFu FNObVAF1zIivLYvey1HgY PYfP11xbGDnp2B6LVEmwL vyaBBmKvWwoAQ3rQ4fKTh fjhwta9mpfpfa Lkmmb7zbbr34rD44U41hX BxcHKVaVDJ9VDJvESDgaH qyrn8bnB9uSv9+VHrmj4i wl6zrwVn4QeDg MCImnoRgiVuqVPD3t4NjB w46H3JabQamh5JvOmm1za 18cECuj2A7yOJ9SZgtEON skU0jOFhwKmF6 YZOoTyYviL78gKXeJQwbN g9jpKqdaYmxKN2lFHFvpw thMNVifW2eFKVorQHcqHe dNZ7wVZMudfkz m381NnPlILY5VVLxvAKvC 9OuqL5jZuGvNZKrGKVoX8 VykPYyIXhoJ450NXjrCzI 1YTBwvsZdM9Ra TLIzuKumOgY9l5M2Cu0Ck 0ZvbzplFND7MRaeMBI5Kf G6FdTzVvG7C6QaYnz3HGP sbWyoUH0nF7Rv RYSdwhmhyrbhhVC0EKBzO WOxdJ71jOTqBQwrOq3to7 F5i656VRZzUUJvqE47Fe4 udDogMTBwdCBU tY1kcbccj6fvisyxOaAbE YLyKSu2YVe2KRPxlJaeSt LtSQR7ZvX7UQD4sUAjvI3 rjNdtxomsoD9v Oyc+R56yjM4eXIX7GXP8i nqiMSKdxqRlEV67TI96E9 RyPjwvdGFibGU+PGRpdiB cgCylRP2gRfBj u5lfm0RoTWiuG0TdDTQrU ZdjMbu6SRHfVSH8oEX9sX 0lMDMvZKfxv8J2hBZ9P8X omtKnlx8wc5td TOInZJdvG83eiSAan5O3J NOisRI3FSWvfUwsYgArhS 93Oyc+BGAhrVugp1UvTjz tb5nmw2mktKt7 HoHpUDZuxkXwfXmkYYF6x 0UjEb03T31rQTnfJKPqXF NuWUYfXDJsaQvouf0deM6 wIi8+PGNvbCB3 sGQ8jZ4sXZLfYkD0JUrvL 182FwTxtECmFlvff9hso6 zaxWl5AqXcBEClmpJenBp xBUM4t6EjXu93 Y16tIUgpDDWdDKOtWCMbM TFiyKlwbq7frS6bRt5+PC 2ft5nwnk24gZ09yMD+PHR mUWQ1tPnfFCym FRNazR4tRPlyNfQ3HJSdR pXgyA25pFZpNVgqZy0ooU auyZpuWM2yTXMohidun02 2ZkGch3owNHHb oBHaZQsjVMP4Y61sy0E1M PCgDPDlNMT9eLL9kT1weN lnbjogbGVmdDsgdmVydGl dDCexDIxtZ494 IHRvcDsnPlBhdGllbnQgT bEsOPo9N0KqQsl6PENibL meKF6npKTpZRkuIj4lzPv rjKwlJL7bXLVw vphdn754JoOmd2rzFNBbj MJiQNqhEVX9F63kp6T4MV ZtYOHcZAO0sSC5qK6mvDb nbjogbGVmdDsg wtOleJvhOXkkUWoqZ404K HRvcDsnPkJpcnRoIERhdG Z8ZH52VD17sZFhi8Q8lWF 0U1DuMPDdsmkj badixQO4IZSnAWWscL18N f0tgKbbRy2cOPKjPKY3DU FgtIGfJ3GwyW7eWdAdXMB xAGFrS6FimGId LGanT183UZqtYnD5YBSvg nZbD7IvWCOwdGbbTuH0a7 X7Yd5ES7P5EN21FW92eLU ux4O2cGN9W4Nm IZGwgsebggmvqOK7LOOsO PDwzC49Ke0wmVfrCl7pNF FuKNC0IWBjkQWgM8OzkS9 yOiAjMDAwMDAw K3TrlOXcRQimU572IGpnA oW9XKShevUnG0TtCPGxoP eoLsR9f2M1Wy6VOZh8HN5 4UY80iRRda4B1 xGL1R8SqQSUshmokzlmgh IS3VPCyKBHtiA58Iy7sgN kqUc7bIGPlHTU1WVWxuGU iP2WyhX2xKfGy QYGqFCDhU1KbzXNaNJosM 486IEkgDqF1HXVpcxTzO3 ZbLYTzvSbyInN3k0X9Et8 BPTAkZJ86YYH8 uHY0NI07HC50N5IqHxcoz GFibGU+PHRhYmxlIHdpZH RoPScxMDAlJyBzdHlsZT0 cZh6vIEXtTLQq dXpxsBNgSdEfe8jeIVJeN IkpWL2ggNbmD8BsrXM6BB Zek9x1Qu94W59lW6BaxRC +DJBgdRX6rSY1 wW2xNdJnItN5EQckA555V tXpaWAeBzphl3niy4mhaT g7WzL6CXVcscUayBxdKRU 0i2VfPy42G81k IHdpZHRoPSIxNSUiIHZhb Emhqd6lrI6rXw9+PGNvbC T2yKL1kY3hXgCjSqX5NHn wJ887XdNanYJm Edzzj6zfq0wtnRx9DcPmA GTozdIsxLfgAUO2g2FmXn 98D7TceBstr1GqIzm4ke1 5gIDck7Z1pLK5 X2VaAYAxknvbaYGekSbuR H6jWLPlaiuhADJblG9bWZ YbZ1c6RkXqVxO2JLdeS9G iarL6RAWinRRt KBobPOD1Z81kf1A3MSYuD JHfOVM0oSW2tT3apYmmcr ogbGVmdDsgdmVydGljYWw nYXwgA875ARMc wOiwIAKlrG8mSSQpgXCfe HgwNF8dCWVnngulVeuWCO qRU4IYJEnxCW0MJLWDEy1 4E0NhIml5ESNf oNoxKD4ftGYaOEuxUl8da FrpzSqgXN2tWQValztiNZ DzdT2yXKEpvGPpiXluPY8 ePALxyxjda448 NiLxJDD0NPVvpPBaZ2Ejl Y9xJlWoALRwWCKrY2JcyQ HhPGkcI006GUzjKmS4EWX ybqKrH6AnAYNo hIglFqF0j4B0Ff6fBN8qB A7vAAP3CL26AO91xFRmc8 W0kKV9N2HgIAJvfczhkim ueHR4QZIuOGNi iL29rJRuDCyrWx1kz2V0j 242NIYsYFWwgD99Nn8aaR hpFKZgbWXVxW5geauwb7r vcjogIzAwMDAw UAw8DRb6XMYezHiqZiHtJ CP6XbA3PLD4tBThpF9etV sjjnivoQ7pVpw+NTYgWWV bmeK9D2QiFmt5 WYLopTzwNZ0uoFUmFZbrX o7psXudqXtmVP2xDUHojs ztTAPzlQ5zTHMvuATvkMe hZJ3pMSArmdjz b138JuSwNHL3QUSpyNItX 8NhwT2eWyKcBRYmGJHsJ2 AwjSWaRKzuD069EZigUzU 7QQFoppBlP4Sf EEJgxZrqCcI0k4Z8Ai4IB G3BCPK2B5CdTlo4EEOnzW eyBA7tjYZcCWehAr1uvIj atEslUL6yZQNn vzdaJIHvxZ4vUGRcvNLof AhnJZ8wNRKsstyer081Qo GjBTU9RKAhtMQdD6EbaU1 yOiAjMDAwMDAw H7PdsOXbSRcfL590QQsqW cR6BBHyqhJrG6FwXFXlcR lzYgP7b0L8Nr3WxIQoN7J xO9n9Q2KxUtfw dHI+GY60AFEdNR41bVEyd WVeg6kwgIi1SiVgRVHwWU E9uYacCFbad8ZoMMYoP81 wqMSry6F0SGUy gPvpqWYcWxJswMG6gJ8vM Hrvwosio7ahjnohDiaot8 nezc84qL84K53tQVnyIYY oPSIzMCUiIHZh yLdkvu1jjE6vHk1+PGNvb XN3rDI1iP4yJkSoQaC6LR toZ363EkOwfFFfGsmlc6r zx1srzMd5AsOw EFWlspSjsQjaGJR3f5KcU f74P25oNMqcPSEdCECgBC TnBGJusJatdm3xnT5bZq7 +JA7xr3wvuv16 kL61iJD+XKRsIRW6uFneS RhrMGAawK9dOAqyIfB3MX GsFuUqeS37hWKxHHsmYk5 fjYicqRtfZF6r ZCEatcmle048PdBew4lsA SZbwBVyNZakMQQ9U41qx0 P9EZFsQYUvOMM9eRO5wL6 hbGlnbjogbGVm dDsgdmVydGljYWwtYWxpZ 127FPWhuIahQfTybKPpF0 zwzsVTPB9tEojlaSU+PHR fZUJ5hKojJMpj NXUscS2uCKCjG3y6PnGcL qR2GMlfO3QesxO3NPUtvW HzWSApkWBZeE0xulowh2z vcjogIzAwMDAw APt2PHi2BDKlyLksTvEyI SK7CaN9YIB3bCNocR8gwJ yarxxseC7aQyu+RklOOjw vdGQ+PHRkIHN0 rJppHBbsFNTnfJ1gPPHcN 8k1AyVbOfW6NMmpH9Uapd S6WIYmqRGgPFIipVBNgN0 lptfgk9sqotpz RiTqPNQaKFg8TZj5BMGzh LbrXkLpESH1VzQ0XCK9eT YboV2dzDoksqhcwC4lDss +TVJOOjwvdGQ+ HWZvXPD7bMpuNZzeEMNmx K8wOMPdM1l8RyQtLrP0MH neQ1FullN0UZPxsDGmKBP naKGFyT0ihnaz o2ghpwaaOvWkFUYiKWe7F Ib6GBKklTipGlTlYQT9Zq R2DKC3hOGpqY2vpWpfpij daW9jRuf+UGF5 XVO4VQ37IG04M3YxVmtef GFibGU+PHRhYmxlIHdpZH RoPScxMDAlJyBzdHlsZT0 aBg7iDNUnUBPa bGx (more content not included)... [facility] Coding Summary HTMLBase 64 CpklorzdPFb8zCm+PGhlY WQ+VW8ZRFAqJ51piZIqzI 1BW4aCJO4MTXRZDRNRIE1 BYA4onFE4LBfwZ9RkitJk AehmvEIpNQ12YTt9OWE1q UtmXDurmZ8kgIOlR8b5Wp WkPU19vW23KWynFXCcGuA 3LjZpbjsgbWFy R0ltVgXxmADbElc+PHRhY mxlIHdpZHRoPScxMDAlJy TyyAgcFL5gKr6xQQVoWLD vbGxhcHNlOiBj z6zjIJJbIRszPW7vpBsxT 5FfcKQ5SMLuj5n0Dk64iU I+JSZyARQ3rPsdGFumn55 2BrXpt8xtMYC2 yEWfORevISO1K17ry1Q0M OZsTRVuQHE6uLL4hC6uxD quxpnxC1AhkIEsAbU5ZLM 7gZNirV2caVxe sougqQ0rHbw+M58SHE0IN OUNSF5TWdv4V8DzIzswpH I+LU19NWKlCG92wXAraRX dz7vrvCp6XuJc NWNcQYE1zPhsOWqxp6WeZ HXuK77whEMdl9T5NXBldV benYPeKcCrlMF7aP8zPBg zzcmns7mfdngm Mdumx9rhgq50oM11I22jB SkyBFAlEUH5LLXxWWUcfB qlif5ioM2zZg7+DBsde2d ec6tljSi7ElBg OKZmvkInyBokCPF6n0CzD e29E4NwxGawj4WwPoa1ck 41gYUmg9Y1yYE3SArlOBX tyH3oEAviOtE1 FDAhVyKsnC16kMPrSHmyG q4jgWaqdQqwSQ9dEHXdnw ztXNIpbJ7qDLUduRFllLo lNV7qJSFcupfo o001KjXwYHB7CUHwaBJaM 7FlmC5dLdNsDJLcQVBeC9 GxoHUaAKdzA400DEkmDoA 4ILCnkrTlI3Mg JKVnwDpwDiE6d3I6Rj5Ge 3IkslulQIV2CMumTTP2Se R0ScTnMwS4H4PnWbz7QQD djVmqFT6eV6Ru VPUcapncwebzoBN2XVOcE ZQcxT39dKNiSSciQg5qz2 M7g326BNHvRSXsrL99Om6 udDogMTBwdCBU jF6avcqee7cxiasgZuMzP CJaDTo3KNf8MIUurNgcBd SnGYT4KgJ7XZG1bVQwnN9 wdXbavshywI1s Oyc+C46fvS1iRKN3EAI3w ihtQSIkebZcZP83EJ30G2 RyPjwvdGFibGU+PGRpdiB boQgjUG4sPkDn d9awv7HtDZllH0LqISHcH EkqQlx9DCMjACZ7vWJ7vW 0eHIGyAMtsh7L6pXI7C7B nquMvlz7gf4so ADJeXCddM64ghXPfp6X3D FSieSK0YOIafWwwZrSoaH 93Oyc+MFLwaUews5TxUat fu2hxi2rilGk6 WtTxFSGzouHwmVjsAPU4h 3AaNc83T93pFZkwMETwKU ChHAOiEKArnJvyix8zjQ5 wIi8+PGNvbCB3 dXE9iZ0rKJBjBxR1TBovN 486TzSfcKShGhddi4ujr1 rfeBa5IlYwNOZkngIweFr pGOI6p9RbXp11 T01jCVqiMIPgVYFiYRYuP CUwzPjmax3muW6rGy1+PC 7ed1omtb36uL87gQG+PHR hNMP1oVmlMNws BQDxxF5jBJbpYdS9PYUlW dRpzD21dVToMMcvUw7jdF myxBqfUZ1lZUUjddmvs47 0LdFaz6blGAVz aUGcXWoaFNK8A59lw4W8U CYkWPIlLCP6zBF4jG8wlH lnbjogbGVmdDsgdmVydGl jEEkeKZroP580 IHRvcDsnPlBhdGllbnQgT gGhBAa9J8MbTzr1MSYnnE yaKU6kuYQtIWkdYw7dnEf wfBojSE2cYNJy kmuvp629OuSkh7hpZBIyu BZxCNhcXMQ1N40he8O2UW DqCJAwTCQ1oJV4bU8agEq nbjogbGVmdDsg xwEuyMtbKZdmNSocI189A HRvcDsnPkJpcnRoIERhdG O5PY95EL18kUWit2W9pRC 0M5BaJTQossde htujtDI8FAQaSXVehR51U q0sxRtlXq4qVALpVGW2HQ ZdzFHxF6DmpO0xLgZtHWP dNEXrT6KioDGv FHguO743GSdxPqV4RASjl vAsJ2DcPHFfwSwtOuW7u7 V6Yn3XK7J6XR70BG56sNX it6J0rVP0V8Ug ZOQwyaomtihrmUA9VJGsB TZaeM57Yr2qfJmoMw7dDS KaXLP6ZIGnwUGlL1IpyN4 yOiAjMDAwMDAw G5MmbGRsNIyuD367HOwoH tP6JRIewlWmX4DuTCThtZ zeZmY3w2C6Nk4TWDp4MP9 1KE61vXZyv4I4 rMW5F5LwUVUmelwkfjxvu PP6MLUjFOSugD64Lb4miK iqEa3cDTKjHZX0QNEesNL rS3OqnP2kFwFo AIYbVOEdW7OucBZbXCfvP 726FMibGfI5LQDkunGyH7 PdAMScnPgxYmG6u7E0Bw0 GUELgVI86OGP5 kQW2BA62IX15V0KeImlng GFibGU+PHRhYmxlIHdpZH RoPScxMDAlJyBzdHlsZT0 oVb5nJKZyLMFb hUeysGBkWdSqj4qqAVQpL EfqZK3cfLszI9YiePA8OM Xvz0y2Hv28R22zC6LczLY +ISKbqDB3eZS3 jB0mNaIgGmV6SPqmR190S kVdlTIwLynje7fsd6xbpF o1VgU0RGFsvmGvyYtkVII 3n4HwMx57Q20g IHdpZHRoPSIxNSUiIHZhb Pzsgp1gtJ9kQj8+PGNvbC A3eWU5lA9dOkDlMlP1EFj xZ169MyIqkSLd Inokh8ptz2xadJp0DbBbG PLfjlGqtWefJWL8o6LqVk 01D8GfmFmtx4HfGoq3pz1 9lXYro8K3mMX6 M4JiLYZsxokloLZxsTgjU H1bZQFrktthWTMjkG4qAY YhD9h9IpUiVwR3NHmoT9L oceL2AZRlmXGa SEzuFTM2Q21fy6Q0YCDyQ WZdKPH4eMO3xR9msSvvoo ogbGVmdDsgdmVydGljYWw cKYrwT539DSUu kYzoNXEvfM5ySJGheMRsu YaiYV5kNFHdluxoWviAEA cWL7MPYLfiZC9BFEINAm3 2E1SlIgt0RGMt vGybAX3fhPRwFAmcLr5ly NjcbHbaUH8oIKMoporyJD GmoV8rQIAhxJDvqVqwLA0 yFAFzxaqsp779 MkEhSEH5ZLCgbQGdW4Vuh V2iOcLxGNBmNQNrQ5KebI DzMPqzR716GFovPlE4KRC dkqXjT3KrENPw tPylVzH2t7I0Ny4eVI7jH H6cTMT9EG07QV31iZOto1 P7vJJ1W2QaYOOjyemwemv vgXT7VNJlHNWz uN80cHUrPMnzBq2ow1C6h 083UPFtKSQojC26Or4sfM wzKKWbxMDYuW4vwgpcu0j vcjogIzAwMDAw FZj5PNg0ESLvvVztWzJkQ QO6OtK5BRC0xUMilP9zcR wnpupthE5rNtt+NTYgWWV pxgP9U9EvJrl3 HZEkeEegBK8xsVMkBDmhB m2hkGlruQylUZ0pUJZhkx sbXXLoqH2dBLQmnEUtfNy lGD7tRCNghxus n969IjDyRYN6URDovGLgE 2TrmR1dWlYeYDRqBHRhT4 QhvCCqVJvmT639EQhvSuD 0STAcaqPxR0Qa IUOmgMjdTpW5i8J6Gv2AR H8EGXK1E5RzQbb1XEBvvN vjAZ0wwJZjMPmoBa4qyBr jkRnxZQ9iXQJe vlzfYOXquH9yIHYikKItw BkbPF7yRUMlrbkwh678Qd JfELG0HVVseHKeS4ItgH5 yOiAjMDAwMDAw E4WayVPuDHmoU747OKneX dR5SLAisgPiL8EeHLSmjG jyFxI6f6J1Sn0YDSbmlER +GC68to95Y3Js QcsfNdw7FQDfZGP3eZE6i O3jCKFvLUton6T8qAD2V6 PrauCywm2ia3vuISOgDCc jY15alQEuq6V5 FCFisBZ2ERZluVmoJcTrf G93Oyc+KQCxaXaux9JyWf kyr1vvd0axwMb3LtOnJVV gdmFsaWduPSJ0 t0TeWd44T36gXRzhDNByO SKcZDVkESNwjTzmev0foR 9wIi8+MYGgqJB1yZA5vU2 mQwZnBiM2DVrz H211WtHxcBDbSuikg5bpr 3ilbMk0UtSnWVPwjxSudJ ciONR7f9AqPh71F1LsiNq zo3ShTki6fw35 jVFxw2X2pWB4G9QnTDLiv lfoiUVpaRaxKD7aWWDxry qwEGBiiB7mYRBdS2s9TiC xXeZ1IMuhX5Oi xkY3VCLurQYhQMPegAVLp M9naocqa3lzvidsQuQhUT LtOVn5FDp0BOComPvkIuE cGAI4PgC7EZD9 zNTmyX5maJwoxkgmhQ9wN yc+FAd6d6tasCFdIY7otT B3IH04XF12eQDrg3W2bNL 1A4QvQRHyloft lueerQI9XXOzSPYfrI23S j7jbTceJc0uZVFqMKH5PJ KaeDNrI4QjtC8mVcKnUIO iJLPfM9KeaOMk UHooX349IIslZcO7FDHzr lTgR3XtUSWecQmlHpT3e9 D2Hk7ROQ62JA47ZH48jWF ec8A9iXV2P1Kj UELhhclbssknlQW7EZOrF WDvjP29Gd7egQctUv3fKQ KvQWN4TAXhbDDmO5OekC5 yOiAjMDAwMDAw P6OzcUKzPNejM636UOofU wQ4CGVlyrVvC7AmVNGquW voPkL3g3L9Ou7GUg15IX2 4AS33eILin2F6 kJJ8J8SoAAZkymxbupjrp JR5YXWtDVYoyU33Zq6bgH oePr1nXPRoVDB7AWMfuLX gL3JbeY0iChPw DEPbWNTgG0StwMMlIHekX 127KBxiCjC7ITChivLlA3 TcLNByrAnjDcQ9m3S1Ce2 EJAphpmx4U7Sj PjwvdHI+DP49YXUqVQ05e PMmdQBef8udjEj7MtCvPE YxEDN4lMovJQznf3OqMUH sS02zaLMio5Z8 IGN (more content not included)... [facility] Coding Summary HTMLBase 64 RtogcaiiQFv8xXv+PGhlY WQ+WC3MXPWxT62dvBVonB 1LI0cVMJ5EKDQYGEZTIH6 XQH7xaTM2ZTdqK0AuwzDg MnjvwRTdAN73RBk8AQC2d OlbRLqfkW1anHOwW3j6Pd WiDE70cH56CZglRQAqUpY 3LjZpbjsgbWFy J2upVvIziZYoHim+PHRhY mxlIHdpZHRoPScxMDAlJy PlcHgcYA0jZf8gXBWwXYS vbGxhcHNlOiBj x9lkJPQxOKukSX0tiWavX 8UqkLB7WXXrp9p5Ib47eJ I+PNVxGQE4zKdbRPatc88 8XtJud5mgNLF2 tQCdBXftGJJ3C44uk1J4R VFcJNSjBFE3rUK2uW1xiV clktzrP6PexUGfNtN9QFX 7aFAkaV5mdTek zzxkhC0nMhl+R06DFQ1DC KRSMW3NQsh9E2SlDothlG I+HC04TGVuMY75cJHxqVB pn5iqfFn2SmMd XCJyQPY0jYxpSHznj0SoU BZpL20moZIkp5E3DEPbzI wrbDMeKuNulOR9eW8sUVk uxvqeb2paeynj Kchcz9jutj34wB95P06zC OukNYEvTCM4RKQpGXQaaK qekf6ncT5bWt6+KBieb2j ub2qwsOe2QaPl SIBjeaZhsEpePFU2r3TgB g53P3AtkHohe5XvZmz2pi 01hEDec3V3sPF1RGuvYBM bvX3sIBjeZwQ7 BHEkCzIemH15gXIiSZdlX u2ztHalsJikIO2tFOIsjd acYDNahE6nLSIktZSkpIl vLE5zQFLfgimr c372TaXpNZH9BJJlnNSzE 4LcqE5wNkUzYIEsUCHlS3 TsdPBqXGkbV464OOcvAcH 2YGOyofMfS0Vg TMImkJduDtD3t9N9Br5Xw 3LwyxkcBKJ0USbrQMA6Qj U1AeEkRcV4G1HzVmy8SEI zmGmrEM1dV0Eu EQGyxyaufasobWK9TFWnK TKtrC61lQOkWDzrWw8xy8 H3m703BEVpCTFllO46Es5 udDogMTBwdCBU dF1skfgrt9tlymxaFfJaF JSvQGr6IUl4HTXduZenLn IyYZI0EnF2FVH7eSMvbH6 jnXvdgiksxH4t Oyc+E19zpC9zBMW2ILQ1w llcGYUpfmMgKI11AB63W4 RyPjwvdGFibGU+PGRpdiB giNhuMP1vWaCk n3czg2GpUBscU0BhMZCaM XplGqk6ZFZiJHC9gWE6tD 1rRQDnBTzoa2U3cNF1T9B xhiLypi9nx6kl CIMqOTbdK39itUTyz0A7M DEtnRA2UZRyxRtiWvYowE 93Oyc+PXBhsTzpo6JaAwl ng4pdh4zsrRc9 HfRdPJUgtvLydGqjYZP1p 2RgCc82D43pRCvrWYXiZG VrKOEyWBMhpPyova4tiF9 wIi8+PGNvbCB3 xIU7rJ2iGDNyAjP7CFkzP 685UpNxtOIgXngug5kgl6 jrgYj0ObItYNUohsHcrSm bMHX5a9YpTy87 Y77sETirBOJuRURpENLaU NWqfQgykf2jaY0tYz0+PC 9ma2mlnv89tY07yYQ+PHR mCDC1bXbtQSdb BDFrqO9hXTzfVyW2JXDaO wXszR72nSSnHXqxIs6bgA ygiRacGU1iIHZxrklem89 8MdUya8fjLYDj oELpOKphEGQ0I78bd0C9N OEhIOSyWFQ2kIL4kE2keM lnbjogbGVmdDsgdmVydGl kLSdtIFygE990 IHRvcDsnPlBhdGllbnQgT xPrAFs2P2FwWgy9AUZksM hmRE0afJCzGGdrSa5zqYc khAkkKF0mOMLv qfiri802EeByd5ckNSXtv DTbEHtcKSC1H30vj9J8SD GgPWYeKGI7uSM9fD8khAm nbjogbGVmdDsg hxSzlScaSVzzVLqxJ478N HRvcDsnPkJpcnRoIERhdG B8DH90XM90cPWus6C0eFN 8M3TtTAAwlnrj slngdLR2EIChENDipK98H h2fiVfrPz9qYSOnSWY2ET KwaDGeA9YwoO9vKoTdUXL uYJYyA3ZnsTSn CNtuR009FNbiQrW8ZCXvo dDfX7SaLTDppZdyDzJ0d5 X7Yj4TA7O1CL76BP06rTH kq2H3wYB8R0Pi CXNnxosfyhhngQS4NXUuR SBpeS29Xp3lhQacIi4rZN HkAPG5AKJasQZmC3BigV6 yOiAjMDAwMDAw K8QhzTQpFToqW647RGdkO aF5NVFckiNyF5LiXAKlxZ sfFdS5x5Z7Vc6OJFq9PC9 5YE97xJAqi4V2 nUY3J8HqYLCaiyexolsqb XF4HZHgBDGoaB77Zr3xmF pbLt4pCENgDDL8FDQzrKP kS0WwaY9nNeRy YVWbXEEwZ6MvzRZlVBitR 072UEmuIbE2XWGfcwGqD2 QlCWPheQemYfV1c1W3Eb2 TOEUgWD68YRZ0 jOG3SL00BQ01S4FcTywus GFibGU+PHRhYmxlIHdpZH RoPScxMDAlJyBzdHlsZT0 yXp1rHGWrZFCx aWgixZFlMgBbm7rjRTXnL IlbRM6cwOptN3MreCB3FF Xtw1u8Uy67G23lA4YfiDK +CXZbuDT9rYO5 rX8oIoMzHdR9GLwbM970G qYgbSFeWtrqr9mpc8tgxD q0WgN5RRWktqQquXymLMK 2m7ShHd29Q91s IHdpZHRoPSIxNSUiIHZhb Qezsn2uoN2qDo0+PGNvbC Q5vPF0mB7pFmSmVeV5EJm wE203KfUbvPFm Ljqun7hkr8tvfEb4JfDeL BJymxNgzBrtDRG5t9ZqVq 57A3AnzDbth2YsFxq0ip0 2vZJst4M5tHU7 C6QeJWXhytflpLSmbYqnK Y8uMKDlsjnwBHJucJ8vON TlU0t1YrBsMbR1WBwiX9C geqY7BHBorILx HRagXHU4D12sb4Z1YYSkQ WVuHEK6tBM2dC5rhPtule ogbGVmdDsgdmVydGljYWw tMOlrU949OCJe wShyGTJueH7wYBKckIGot FddYG1gQTPkvvcrGdyWCP xGX1RFXYcyZV6PZQKNZc2 9N6CsUvg4NEOm dSghYE8xpINbTSagLn5wf SvxpJzeDY3aECRyuotuXK KheY5lADXjnBPvsIflGP2 tXMHvmezcd199 WmIiWLD7QJLhxQGhN2Mxj S3lJkWyBEFfAKHrG6ZjsO FiDPuaY321IWfyQkE6TVI yorChO2OzMDDd cWzpWlG1u6T7Oo8oPI6cE Y1dPOR8QX84AI73lTYyp1 D3zIP8W7CtZEJiinrumph mfIZ9FHIkXFAi xJ60nMKbDKctFu5rs2B5b 684EAQnQGEasK48Mt2upV oqPYEybYMNrB1xinild2z vcjogIzAwMDAw OXd1HSy3ENKeeEugYbZlE FC8QaI2HBV0iGJlyO0kwD qkkiusrW4hIkc+NTYgWWV dxiI7C9QgXvk9 ZTQfdIccNC0ncFVbHXmhO r9itIikvEioMQ2wKCDpvr rmOOUvdQ5aABMxmYMqoOx qDU5cDGPqvzlm y450StNbTAJ5GGZvfJAjF 7ZrgO5gZpUwSJQkZQEjQ2 CjnWPqVRzuY441WCjuBbL 6RIDlcfCoQ2Ni ROXeeBjuQfM3o1Q5By7DD B3HNJM1Y0DxTie0RNBouE rzSP1amDDlGUdsVq5jeFg duWcjVJ3qJQYz yetiVTCwlU4yOHTcoUZof NlhSE2wJBCgihvxw251Xf NgQKU3HXNzvEItE7NsyV5 yOiAjMDAwMDAw R5YvhLOgRCrfP561QDcfV cM0YBYzbyOjT1QmFYZwcJ pvCpO7p5P4Dt5FcOFmP6Q wH1o1H5IqSipt dHI+RN75BOHwHU25bZMuy CIni4jvuOy5VbAcQPVhHO G0xDadAIlcx6VwASLjX85 hbTEei0F6YXAy rLlbaNOcWfObsBC8xF9pK Yjgslxrm0tkzsxzDggxl8 pbef28eU40Z40pHCmiLSQ oPSIzMCUiIHZh yRygpi9jyK6nBg7+PGNvb PX8hFV1nC2tLpFjZqH4PI krH046AzIsiXYmRglot9m tj1xwtVu5EyBj QCKgawJkuCahQFT4i4XwO a82T71rREkdFANyWCInSX QmQJTisWerne2pyU2sJz1 +SB5tr2ujav64 vX93tZP+UPWkRFN6qMajV MkdZWZujN6cQZifSqD7ES FmVjXoxJ35nQWfOVdrPx2 ivJahdNqfKL3b ZOPpfbzkj166ApSha0jvJ HTfdAIoWEivMRW6K02my7 K9HQTtWSEyPJK9yZP4tX5 hbGlnbjogbGVm dDsgdmVydGljYWwtYWxpZ 645OBOarDclGpLruUGwN2 yufhUKRT5oArzciTI+PHR vKVO0cTefTZap ROQfbB6vFZHqB4w1VmEdQ aC9KTwgI4FdyjS6AEXnbM WeTFRmwFPOuB9skqhao3g vcjogIzAwMDAw GZh3TNf4ZOPfnCnwRlXiM MG6SpU7SEZ9oULjdK6lnZ kdoqiwxV1eTxi+RklOOjw vdGQ+PHRkIHN0 mXfaIKiuBBYoxT5cRYVwZ 5o2OqEaZnG9HUzjS5Gnir O1KFPpyHItCHWspITOnQ1 nbisyr9asetba GqZmZSUeOAu9DNz9KKDuy UqoGaRlJYE9WcG3VOF8uA CdrZ9ymZeovkedzN3aCrj +TVJOOjwvdGQ+ KDWxYCR0iWifTMqlDKZmj F2vLKNvS0r3LlZrWxH8JY tiD1YfptO9LJUkgHPqILW kzWLBoK2srimp g5qgaojcOpLqFWUiWSt1P Wr6NOZinSvqYsCrEWQ7Oq V5SUA2ePLifG2piPfxbxz lmX2iMmp+UGF5 KHG4GG05AB86G4FoRdrzw GFibGU+PHRhYmxlIHdpZH RoPScxMDAlJyBzdHlsZT0 lPe7bVCFfPLZo bGx (more content not included)... Normal [facility] ED Clinical Summaryon 2020 ED Clinical Summary [facility] - Emergency Department [address] [place], [place] [address] ED Clinical Summary PERSON INFORMATION Name: URMILA WU ANN Age: 55 Years Sex: FEMALE : 1965 MRN: Acct#: Visit Reason: Leg pain-swelling; Fall; FALL-RIGHT LEG PAIN Arrival: 12/10/2020 18:48:36 Discharge: 12/10/2020 20:55:00 LOS: 000 02:07 Check In: 12/10/2020 18:48:36 Checkout:12/10/2020 20:55:00 Address: [address] [place] [id number] PCP: Huber Pina PROVIDER INFORMATION Provider Role Assigned Unassigned Sidney Montoya PA-C ED PA 12/10/2020 18:53:15 Martha Hernandez COMPUTER SYSTEMS DESIGN ANALYST Nurse 12/10/2020 19:00:01 VITALS INFORMATION Vital Sign Triage Latest Temperature Tympanic Temperature Temporal Artery Pulse Rate 68 bpm 68 bpm O2 Sat 97 % 97 % Respiratory Rate 14 br/min 14 br/min Blood Pressure /79 mmHg /79 mmHg MEDICAL INFORMATION Medications Given: Allergy Information: morphine PHYSICIAN DOCUMENTATION Patient: URMILA WU ANN Age: 55 years Sex: FEMALE : 1965 Associated Diagnoses: Sprain of right ankle; Contusion of right lower leg; Fall Author: Sidney Montoya PA-C Basic Information Time seen: Date & time 12/10/2020 19:00:00. History source: Patient, spouse. Arrival mode: Private vehicle. History limitation: None. History of Present Illness 55-year-old female presents here to the emergency department as evening with her following fall with chief complaint of right lower leg pain. Patient states that she took her great niece home in which she states that they have some very uneven concrete steps. She states there were terrible steps and when she was near the bottom when she slipped and fell. Patient states she struck the right anterior donnelly in which she has an abrasion and bruising. She states the time of injury she felt that there was in depth to the right mid donnelly region. States she was able to walk following the injury however has had pain as she rates a 6 out of 10 on the pain scale. Patient states her gave her 1 Aleve prior to arrival here to the emergency department the right now she has the leg elevated in which it is not bothering her as much. She also complains of some right sided ankle pain in which she states she twisted the right ankle but denies any deformities or crepitus. Denies any prior injuries to the right lower extremity. She denies any head injury or loss of consciousness denies any back or neck pain. Denies any hip pain or buttock pain. Denies any significant medical history. Notes allergy to morphine. Any current medications are documented below. Denies any aspirin or blood thinners. Review of Systems Constitutional symptoms: No fever, no chills, no sweats, no weakness, no fatigue. Skin symptoms: Abrasions, Abrasion to the right anterior donnelly., no rash, no pruritus. Eye symptoms: Vision unchanged. ENMT symptoms: No ear pain, no sore throat, no nasal congestion, no sinus pain. Respiratory symptoms: No shortness of breath, no cough. Cardiovascular symptoms: No chest pain, no palpitations, no tachycardia, no syncope, no diaphoresis, no peripheral edema. Gastrointestinal symptoms: No abdominal pain, no nausea, no vomiting, no diarrhea, no constipation. Genitourinary symptoms: No dysuria, no hematuria. Musculoskeletal symptoms: Joint pain, Right ankle pain, right donnelly pain., no back pain, no Muscle pain. Neurologic symptoms: No headache, no dizziness, no altered level of consciousness, no numbness, no tingling, no weakness. Additional review of systems information: All other systems reviewed and otherwise negative. Health Status Allergies: Allergic Reactions (Selected) Severity Not Documented Morphine- Hives.. Medications: (Selected) Documented Medications Documented Imitrex 100 mg oral tablet: 100 mg, 1 tab(s), PO, Once, PRN: as needed for migraine headache, 0 Refill(s) Premarin 0.45 mg oral tablet: TAKE 1 TABLET BY MOUTH ONCE DAILY propranolol 60 mg oral capsule, extended release: 60 mg, 1 cap(s), PO, Daily, 0 Refill(s). Menstrual history: Hysterectomy. Past Medical/ Family/ Social History Surgical history: Partial hysterectomy ([id number]).. Social history: Social & Psychosocial Habits Alcohol 12/15/2018 Alcohol Use: Never 12/10/2020 Alcohol Use: Never Substance Abuse 12/15/2018 Substance use: Never 12/10/2020 Substance use: Never Tobacco 06/04/2017 Smoking tobacco use: Never (less than 100 in l 12/10/2020 Smoking tobacco use: Never (less than 100 in l Electronic Cigarette/Vaping 12/10/2020 Electronic Cigarette Use: Never . Physical Examination General: Alert, no acute distress. Skin: Warm, dry, intact, no pallor, no rash, Superficial 3 cm right anterior donnelly abrasion superficial in nature no active bleeding. Surrounding bruising to the right anterior donnelly and right lateral and medial donnelly region. No obvious deformities or crepitus.. Head: Normocephalic, atraumatic. (more content not included)... Normal [facility] ED Note - Physicianon 2020 ED Note - Physician Patient: URMILA WU Age: 55 years Sex: FEMALE : 1965 Associated Diagnoses: Sprain of right ankle; Contusion of right lower leg; Fall Author: Jan BRANCH, Sidney Myers Basic Information Time seen: Date & time 12/10/2020 19:00:00. History source: Patient, spouse. Arrival mode: Private vehicle. History limitation: None. History of Present Illness 55-year-old female presents here to the emergency department as evening with her following fall with chief complaint of right lower leg pain. Patient states that she took her great niece home in which she states that they have some very uneven concrete steps. She states there were terrible steps and when she was near the bottom when she slipped and fell. Patient states she struck the right anterior donnelly in which she has an abrasion and bruising. She states the time of injury she felt that there was in depth to the right mid donnelly region. States she was able to walk following the injury however has had pain as she rates a 6 out of 10 on the pain scale. Patient states her gave her 1 Aleve prior to arrival here to the emergency department the right now she has the leg elevated in which it is not bothering her as much. She also complains of some right sided ankle pain in which she states she twisted the right ankle but denies any deformities or crepitus. Denies any prior injuries to the right lower extremity. She denies any head injury or loss of consciousness denies any back or neck pain. Denies any hip pain or buttock pain. Denies any significant medical history. Notes allergy to morphine. Any current medications are documented below. Denies any aspirin or blood thinners. Review of Systems Constitutional symptoms: No fever, no chills, no sweats, no weakness, no fatigue. Skin symptoms: Abrasions, Abrasion to the right anterior donnelly., no rash, no pruritus. Eye symptoms: Vision unchanged. ENMT symptoms: No ear pain, no sore throat, no nasal congestion, no sinus pain. Respiratory symptoms: No shortness of breath, no cough. Cardiovascular symptoms: No chest pain, no palpitations, no tachycardia, no syncope, no diaphoresis, no peripheral edema. Gastrointestinal symptoms: No abdominal pain, no nausea, no vomiting, no diarrhea, no constipation. Genitourinary symptoms: No dysuria, no hematuria. Musculoskeletal symptoms: Joint pain, Right ankle pain, right donnelly pain., no back pain, no Muscle pain. Neurologic symptoms: No headache, no dizziness, no altered level of consciousness, no numbness, no tingling, no weakness. Additional review of systems information: All other systems reviewed and otherwise negative. Health Status Allergies: Allergic Reactions (Selected) Severity Not Documented Morphine- Hives.. Medications: (Selected) Documented Medications Documented Imitrex 100 mg oral tablet: 100 mg, 1 tab(s), PO, Once, PRN: as needed for migraine headache, 0 Refill(s) Premarin 0.45 mg oral tablet: TAKE 1 TABLET BY MOUTH ONCE DAILY propranolol 60 mg oral capsule, extended release: 60 mg, 1 cap(s), PO, Daily, 0 Refill(s). Menstrual history: Hysterectomy. Past Medical/ Family/ Social History Surgical history: Partial hysterectomy ([id number]).. Social history: Social & Psychosocial Habits Alcohol 12/15/2018 Alcohol Use: Never 12/10/2020 Alcohol Use: Never Substance Abuse 12/15/2018 Substance use: Never 12/10/2020 Substance use: Never Tobacco 06/04/2017 Smoking tobacco use: Never (less than 100 in l 12/10/2020 Smoking tobacco use: Never (less than 100 in l Electronic Cigarette/Vaping 12/10/2020 Electronic Cigarette Use: Never . Physical Examination General: Alert, no acute distress. Skin: Warm, dry, intact, no pallor, no rash, Superficial 3 cm right anterior donnelly abrasion superficial in nature no active bleeding. Surrounding bruising to the right anterior donnelly and right lateral and medial donnelly region. No obvious deformities or crepitus.. Head: Normocephalic, atraumatic. Neck: Supple. Eye: Pupils are equal, round and reactive to light, extraocular movements are intact, normal conjunctiva. Ears, nose, mouth and throat: Oral mucosa moist. Cardiovascular: Regular rate and rhythm, No murmur, Normal peripheral perfusion, No edema, S1, S2, regular rhythm. No murmurs gallops or rubs.. Respiratory: Lungs are clear to auscultation, respirations are non-labored, breath sounds are equal, Symmetrical chest wall expansion, Lung sounds are clear bilaterally. No wheezing rhonchi or crackles on exam.. Musculoskeletal: Normal ROM, normal strength, no swelling, no deformity, Patient has strong pedal pulses with brisk capillary refill bilaterally. No acute lower extremity edema or pedal edema. No calf tenderness. Negative Homans' sign bilaterally. Patient has bruising to the right mid anterior donnelly is well is medial and lateral aspects of the right anterior donnelly with approximately a 3 cm long anterior donnelly abrasion medial aspect. No (more content not included)... Normal [facility] ED Note-Nursingon 12-10-2020 ED Note-Nursing Pt presents to ED room 5 ambulatory via wheel chair, with , c/o right lower leg injury from a fall down a flight of stairs. Denies hitting her head or any LOC. Small abrasion noted on RLE. Brusing and swelling also noted. A & O x4. Normal [facility] ED Patient Summaryon 021 ED Patient Summary [facility] - Emergency Department [address] [id number] PATIENT DISCHARGE INSTRUCTIONS Patient Information Name: URMILA WU Age: 55 Years Date of : 1965 Reason For Visit: Leg pain-swelling; Fall; FALL-RIGHT LEG PAIN Arrival Time: 12/10/2020 18:48:36 Primary Care Physician: Huber Pina Attending Physician: Jose Santana MD Comment: Visit Diagnosis: Diagnoses This Visit Contusion of right lower leg (S80.11) Fall (W19.XXXA) Fall ([id number]) Leg pain-swelling ([id number]) Sprain of right ankle (S93.401A) Prescription Information: If you have been given a prescription for narcotics, seek immediate medical attention if you have any difficulty breathing or any sudden status changes such as confusion and sleepiness. If you or anyone you know is experiencing suicidal thoughts, mental health, alcohol and/or drug addiction problems; contact the [facility] 21/01 Crisis Hotline -Text 4HOPE fn [id number]. If you received any narcotics, sedation, or any other medication that causes drowsiness for the next 24 hours, unless otherwise directed: ? Do not drive a car. ? Do not operate machinery such as power tools, lawn mowers, drills, sewing machines, or stoves ? Avoid alcoholic beverages and drugs for allergies, nerves, or sleep ? Do not make important personal or business decisions or sign any legal documents With: Address: When: Huber Pina [facility] [id number] Business (1) Within 3 to 5 days Comments: Please follow-up with your primary care provider in 3 to 5 days. You were seen and evaluated in the emergency department in regards to right donnelly pain and right ankle pain following fall. You had x-rays of the right donnelly and right ankle completed which are both negative for any acute fracture or dislocation. You may continue Tylenol or ibuprofen as needed for discomfort rest ice and elevate the right lower extremity as needed for pain and swelling. Continue to monitor your symptoms he may return here to the emergency department for any worsening or concerning symptoms. Medication Information: The exam and treatment you received today in the [facility] Emergency Department were for an urgent problem and are not intended as complete care. It is important for you to follow up with a doctor, nurse practitioner, or physician?s care team assistant for ongoing care. If your symptoms become worse or you do not improve as expected and you are unable to reach your usual health care provider, you should return to the Emergency Department, we are available 24 hours a day. For those patients who have received Radiology results, the interpretation of your X-ray as given to you by our Emergency Department physician is only a preliminary report. The Radiologist will review your films and if there is a change in the diagnosis you will be notified by phone. Please make sure you have provided a working phone number so we can reach you if necessary. In the event that you had a lab culture while you were a patient in the Emergency Department, you will be notified by phone if there is a need to change your antibiotic. Please make sure you have provided a working phone number so we can reach you if necessary. [facility] Emergency Department has provided you with a complete list of medications post discharge. Please inform your floatman/provider of your visit and for further instruction on these medications. Any specific questions regarding your chronic medications and dosages should be discussed with your primary care physician(s) and/or pharmacist. Additional medications on your home medication list not specifically addressed. Please contact the ordering physician if you have questions about these medications. conjugated estrogens (Premarin 0.45 mg oral tablet) TAKE 1 TABLET BY MOUTH ONCE DAILY. propranolol (propranolol 60 mg oral capsule, extended release) 1 cap(s) Oral every day. SUMAtriptan (Imitrex 100 mg oral tablet) 1 tab(s) Oral once as needed as needed for migraine headache. Visit Information Allergies: Substance Reaction Symptoms Type Comments morphine Hives Drug Vital Signs: Vitals and Measurements this Visit (last charted value for your 12/10/2020 visit) Vital Signs This Visit Temperature Oral: 37 DegC Peripheral Pulse Rate: 68 bpm Respiratory Rate: 14 br/min Systolic Blood Pressure: 161 mmHg Diastolic Blood Pressure: 79 mmHg SpO2: 97 % Oxygen Therapy: Room air Measurements This Visit Height/Length Dosin.640 cm Height/Length Estimated: 167.640 cm Weight Dosin.480 kg Weight Estimated: 73.480 kg Problems List: Problem Onset Comments Irritable bowel Migraine Patient Education Contusion A contusion is a deep bruise. This is a result of an injury that (more content not included)... [facility] XR Ankle Complete Righton XR Ankle Complete Right EXAM: XR Tibia/F ibula 2 Views Right, XR Ankle Complete Right HISTORY: Fall right donnelly pain and bruising COMPARISON: None. TECHNIQUE: Frontal and lateral views of the right tibia and fibula, 3 views of the right ankle are performed. FINDINGS: There is soft tissue edema along the lateral aspect of the mid to distal donnelly/calf. No underlying bony abnormality is seen. The ankle mortise is preserved. IMPRESSION: Soft tissue injury. No acute bony abnormality. Final Dictated by: Steven Faith Dictated DT/TM: 12/10/20 8:30 Signed (Electronic Signature): Steven Faith 12/10/20 8:36 pm Technologist: ISIDORO [facility] XR Tibia/Fibula 2 Views [facility] 12-10-2020 XR Tibia/Fibula 2 Views Right EXAM: XR Tibia/Fibula 2 Views Right, XR Ankle Complete Right HISTORY: Fall right donnelly pain and bruising COMPARISON: None. TECHNIQUE: Frontal and lateral views of the right tibia and fibula, 3 views of the right ankle are performed. FINDINGS: There is soft tissue edema along the lateral aspect of the mid to distal donnelly/calf. No underlying bony abnormality is seen. The ankle mortise is preserved. IMPRESSION: Soft tissue injury. No acute bony abnormality. Final Dictated by: Steven Faith Dictated DT/TM: 12/10/20 8:30 Signed (Electronic Signature): Steven Faith 12/10/20 8:36 pm Technologist: ISIDORO [facility] Vital Signs Date Time Vital Sign Value Performing Clinician Facility 04-24-2023 15:00-0400 Body height 162.56 cm Huber Ball Other [employer] [facility] Other 04-24-2023 15:00-0400 Body mass index (BMI) [Ratio] 29.55 kg/m2 Huber Ball Other [employer] [facility] Other 04-24-2023 15:00-0400 Body weight 78.11 kg Huber Ball Other [employer] [facility] Other 04-24-2023 15:00-0400 Diastolic blood pressure 90 mm[Hg] Huber Ball Other [employer] [facility] Other 04-24-2023 15:00-0400 Respiratory rate 12 /min Huber Ball Other [employer] [facility] Other 04-24-2023 15:00-0400 Systolic blood pressure 145 mm[Hg] Huber Ball Other [employer] [facility] Other 01-11-2023 10:00-0400 Body height 162.56 cm Huber Ball Other [employer] [facility] Other 01-11-2023 10:00-0400 Body mass index (BMI) [Ratio] 28.42 kg/m2 Huber Ball Other [employer] [facility] Other 01-11-2023 10:00-0400 Body weight 75.12 kg Huber Ball Other [facility] Other 01-11-2023 10:00-0400 Diastolic blood pressure 83 mm[Hg] Huber Pina Other [employer] [facility] Other 01-11-2023 10:00-0400 Respiratory rate 12 /min Huber Pina Other [employer] [facility] Other 01-11-2023 10:00-0400 Systolic blood pressure 144 mm[Hg] Huber Pina Other [employer] [facility] Other Encounters Encounter Date Encounter Type Care Provider Facility Start: 07-25-2023 End: 07-25-2023 ambulatory DISHA WALKER Not Available Start: 04-25-2023 End: 04-25-2023 ambulatory Disha Walker Facility:[facility] Start: 04-25-2023 End: 04-25-2023 ambulatory DO Huber Pina Work Phone: [facility] Work Phone: Start: 04-25-2023 End: 04-25-2023 Patient encounter procedure DO Huber Ball Work Phone: [facility] Work Phone: Start: 04-24-2023 End: 04-24-2023 ambulatory Huber Pina Other [employer] Other Start: 04-24-2023 Encounter for genera l adult medical examination without abnormal findings Huber Pina [facility] Start: 04-24-2023 Periodic preventive med est patient 40-64yrs Huber Pina [facility] Start: 04-24-2023 Telephone encounter Huber Pina [facility] Start: 04-17-2023 End: 04-17-2023 ambulatory Huber Pina Other [employer] Other Start: 04-17-2023 Office outpatient vi sit 15 minutes Huber Pina [facility] Start: 02-22-2023 End: 02-22-2023 ambulatory Huber Pina Other [employer] [facility] Other Start: 02-22-2023 Telephone encounter Huber Pina [facility] Start: 02-04-2023 End: 02-04-2023 ambulatory Huber Pina Other [employer] Other Start: 02-04-2023 Office outpatient vi sit 15 minutes Huber Pina [facility] Start: 02-04-2023 Telephone encounter Huber Pina [facility] Start: 01-11-2023 End: 01-11-2023 ambulatory Huber Ball Other [employer] Other Start: 01-11-2023 Office outpatient vi sit 15 minutes Huber Ball [facility] Start: 04-30-2022 End: 04-30-2022 ambulatory Huber Ball Facility:[facility] Start: 04-30-2022 End: 04-30-2022 ambulatory DO Huber Ball Work Phone: [facility] Work Phone: Start: 04-30-2022 End: 04-30-2022 Patient encounter procedure DO Huber Ball Work Phone: [facility] Start: 04-23-2022 End: 04-23-2022 ambulatory DO Huber Ball Work Phone: [facility] Work Phone: Start: 04-23-2022 End: 04-23-2022 Patient encounter procedure DO Huber Ball Work Phone: [facility] Start: 04-17-2022 Adult health examination Huber Pina Other [employer] Other Start: 02-08-2022 End: 02-08-2022 Patient encounter procedure Simone Schmitz [facility] Start: 02-04-2022 ambulatory OTTO RONNIE Facility : Start: 12-26-2021 End: 12-26-2021 Patient encounter procedure Simone Schmitz [facility] Start: 07-12-2021 End: 07-13-[address] HUBER PINA Facility:[facility] Start: 04-22-2021 Encounter for genera l adult medical examination without abnormal findings DR HUBER PINA [facility] Start: 04-14-2021 End: 04-15-[address] HUBER PINA Facility:[facility] Start: 04-14-2021 End: 04-15-2021 Encounter for general adult medical examination without abnormal findings DR HUBER PINA Facility:[facility] Procedures Date Procedure Procedure Detail Performing Clinician Start: 04-25-2023 Screening mammograph y of bilateral breasts DO Huber Pina Work Phone: Start: 04-30-2022 Mammography of right breast DO Huber Pina Work Phone: Start: 04-23-2022 Screening mammograph y of bilateral breasts DO Huber Pina Work Phone: Start: 08-09-2017 General examination of patient Huber Pina Other Start: 08-09-2017 Screening mammography B enjaclyn Pina Other Depression screening Pierre Pina Other Screening for malign ant neoplasm of breast Huber Pina Other Payers Date Payer Category Payer Unknown [id number] 1965 Unknown [id number] 1965 Unknown [id number] 1964 Unknown [id number] [id number] 1960 Self-pay 1960 Unknown [id number] Unknown [employer] BC/BS [id number] Unknown [id number] [id number] Unknown [id number] [id number] [id number] Social History Date Type Detail Facility Tobacco smoking status No Smokin g Status Entered [facility] Sex Assigned At Female [facility] Start: 1965 Sex Assigned At Female F [facility] Clinical Notes 12-10-2020 to 04-24-2023 Note Date & Type Note Facility 04-24-2023 Evaluation note Encounter Date Diagnosis Assessment Notes Mar, Hypercholesterolemia (ICD-10 - E78.00) [employer] Other 10-25-2023 Evaluation note* Encounter Date Diagnosis Assessment Notes Treatment Notes Treatment Clinical Notes Mar, Wellness examination (ICD-10 - Z00.00) Healthy diet and exercise. Reviewed age-appropriate preventive testing recommended. Mar, Hypercholesterolemia (ICD-10 - E78.00) Instructed on diet and exercise with continued statin therapy.Discussed the beneficial effects of lowering cholesterol in reducing the risk for cerebrovascular and cardiovascular disease. Mar, Migraine with aura, not intractable, without status migrainosus (ICD-10 - G43.109) Stable w/ treatment f/u Neurology Mar, Polyp of colon (ICD- 10 - K63.5) tubular adenoma Completed colonoscopy last year High fiber diet No change in bowel habits Mar, Screening mammogram for breast cancer (ICD-10 - Z12.31) Instructed patient on monthly SBE and yearly mammograms. [employer] [facility] Other 10-18-2023 Evaluation note* Encounter Date Diagnosis Assessment Notes Treatment Notes Treatment Clinical Notes Mar, Acute bronchitis due to other specified organisms (ICD-10 - J20.8) Instructed to use Robitussin or Mucinex for cough, saline or Flonase NS for congestion, Tylenol for pain and fever. [employer] [facility] Other 08-07-2023 Evaluation note* Encounter Date Diagnosis Assessment Notes Treatment Notes Treatment Clinical Notes Jan, Allergic contact dermatitis due to plants, except food (ICD-10 - L23.7) Cool compresses, Rosibel and Cortisone Cool compresses, Benadryl and Zyrtec. Initiate Prednisone ER For difficiulty swallowing or breathing [employer] [facility] Other 07-14-2023 Evaluation note* Encounter Date Diagnosis Assessment Notes Treatment Notes Treatment Clinical Notes Dec, Allergic contact dermatitis due to plants, except food (ICD-10 - L23.7) Cool compresses, Zyrtec and Benadryl [employer] [facility] Other 06-12-2021 [facility] Contusion A contusion is a deep bruise. This is a result of an injury that causes bleeding under the skin. Symptoms of bruising include pain, swelling, and discolored skin. The skin may turn blue, purple, or yellow. Follow these instructions at home: Managing pain, stiffness, and swelling You may use RICE. This stands for: ? Resting. ? Icing. ? Compression, or putting pressure. ? Elevating, or raising the injured area. To follow this method, do these actions: ? Rest the injured area. ? If told, put ice on the injured area. ? Put ice in a plastic bag. ? Place a towel between your skin and the bag. ? Leave the ice on for 20 minutes, 2?3 times per day. ? If told, put light pressure (compression) on the injured area using an elastic bandage. Make surethe bandage is not too tight. If the area tingles or becomes numb, remove it and put it back on as told by your doctor. ? If possible, raise (elevate) the injured area above the level of your heart while you are sittingor lying down. General instructions ? Take kyxa-bym-xhpaxas and prescription medicines only as told by your doctor. ? Keep all follow-up visits as told by your doctor. This is important. Contact a doctor if: ? Your symptoms do not get better after several days of treatment. ? Your symptoms get worse. ? You have trouble moving the injured area. Get help right away if: ? You have very bad pain. ? You have a loss of feeling (numbness) in a hand or foot. ? Your hand or foot turns pale or cold. Summary ? A contusion is a deep bruise. This is a result of an injury that causes bleeding under the skin. ? Symptoms of bruising include pain, swelling, and discolored skin. The skin may turn blue, purple,or yellow. ? This condition is treated with rest, ice, compression, and elevation. This is also called RICE. You may be given klcm-xsv-vvajlxg medicines for pain. ? Contact a doctor if you do not feel better, or you feel worse. Get help right away if you have very bad pain, have lost feeling in a hand or foot, or the area turns pale or cold. This information is not intended to replace advice given to you by your health care provider. Make sure you discuss any questions you have with your health care provider. Document Revised: 02/06/2019 Document Reviewed: 02/06/2019 [employer] Patient Education ? 2020 [employer]. Ankle Sprain An ankle sprain is a stretch or tear in one of the tough tissues (ligaments) that connect the bonesin your ankle. An ankle sprain can happen when the ankle rolls outward (inversion sprain) or inward(eversion sprain). What are the causes? This condition is caused by rolling or twisting the ankle. What increases the risk? You are more likely to develop this condition if you play sports. What are the signs or symptoms? Symptoms of this condition include: ? Pain in your ankle. ? Swelling. ? Bruising. This may happen right after you sprain your ankle or 1?2 days later. ? Trouble standing or walking. How is this diagnosed? This condition is diagnosed with: ? A physical exam. During the exam, your doctor will press on certain parts of your foot and ankle and try to move them in certain ways. ? X-ray imaging. These may be taken to see how bad the sprain is and to check for broken bones. How is this treated? This condition may be treated with: ? A brace or splint. This is used to keep the ankle from moving until it heals. ? An elastic bandage. This is used to support the ankle. ? Crutches. ? Pain medicine. ? Surgery. This may be needed if the sprain is very bad. ? Physical therapy. This may help to improve movement in the ankle. Follow these instructions at home: If you have a brace or a splint: ? Wear the brace or splint as told by your doctor. Remove it only as told by your doctor. ? Loosen the brace or splint if your toes: ? Tingle. ? Lose feeling (become numb). ? Turn cold and blue. ? Keep the brace or splint clean. ? If the brace or splint is not waterproof: ? Do not let it get wet. ? Cover it with a watertight covering when you take a bath or a shower. If you have an elastic bandage (dressing): ? Remove it to shower or bathe. ? Try not to move your ankle much, but wiggle your toes from time to time. This helps to prevent swelling. ? Adjust the dressing if it feels too tight. ? Loosen the dressing if your foot: ? Loses feeling. ? Tingles. ? Becomes cold and blue. Managing pain, stiffness, and swelling ? Take uzzs-ygw-zsclcgd and prescription medicines only as told by doctor. ? For 2?3 days, keep your ankle raised (elevated) above the level of your heart. ? If told, put ice on the injured area: ? If you have a removable brace or splint, remove it as told by your doctor. ? Put ice in a plastic bag. ? Place a towel between your sk (more content not included)...[facility] Evaluation + Plan note No data available for this section [facility] Work Phone: Evaluation noteNo InformationNortSelect [facility] [employer] Other History general Narrative - Reported* Type Description Date Medical History Colonic polyp Medical History Migraine aura without headache Medical History Menopausal symptom Medical History Fatigue Medical History Elevated transaminase level Medical History Lipoma of left lower extremity Medical History Hypercholesterolemia Surgical History ESWL Surgical History Biopsy of right breast with ult rasound Surgical History colonoscopy 07/15/2020 Surgical History MARITZA (total abdominal hysterecto my) 07/1999 Hospitalization History see surgical history [facility] Other Hospital Discharge instructions No data available for this section [facility] data available for this section [facility] Summary Purpose Family History No Family History Records Found Relationship Condition Age at Onset Recorded Date/T issa Not Specified Malignant neoplasm of breast Unknown Malignant neoplasm of pancreas Unknown Malignant neoplasm of ovary Unknown father Multiple myeloma Unknown Advance Directives No Advanced Directives Records Found Advance Directive Response Recorded Date/ Time Advance Directives No February 04, 2 018 2:37pm Chief Complaint and Reason for Visit Chief Complaint Screening Z00.00 Chief Complaint Screening Z00.00 r92.8 Chief Complaint Screening Additional Source Comments INFORMATION SOURCE (unrecogn ized section and content) DATE CREATED AUTHOR 12/17/2020 [facility] DATE CREATED AUTHOR AUTHOR'S ORGANIZ ATION 02/04/2022 [facility] DATE CREATED AUTHOR AUTHOR'S ORGANIZ ATION 02/11/2022 [facility] DATE CREATED AUTHOR AUTHOR'S ORGANIZ ATION 04/27/2023 [facility] DATE CREATED AUTHOR AUTHOR'S ORGANIZ ATION 07/27/2023 [facility] EPIC Care Team (unrecognized sect ion and content) Team Status: Inactive Member Role Status Dates Huber Pian , DO Primary Care Provider, Other Provid er Active Disha Walker , DO Attending Provider Active Team Status: Active Member Role Status Dates Huber Pina , DO Primary Care Provider Active Team Status: Inactive Member Role Status Dates Huber Pina , DO Primary Care Provider Active Disha Walker , Attending Provider Active Team Status: Inactive Member Role Status Dates Huber Pina , DO Primary Care Provider, Other Provid er Active Disha Walker , DO Attending Provider, Referring Pro vider Active Goals (unrecognized section and content) Goals may be documented in a n alternate section REASON FOR VISIT (unrecogniz ed section and content) POISON IVYPoison Anaid- [phone] Anaid ShotNo InformationPoison Anaid- [phone], sore throat, sinus congestion, testing for COVID [phone] FOR RECORDS PERTAINING TO PATIENTS WHO ARE OR HAVE BEEN ENROLLED IN A CHEMICAL DEPENDENCY/SUBSTANCEABUSE PROGRAM, SOME INFORMATION MAY BE OMITTED. This clinical summary was aggregated from multiple sources. Caution should be exercised in using it in the provision of clinical care. This summary normalizes information from multiple sources, and as a consequence, information in this document may materially change the coding, format and clinical context of patient data. In addition, data may be omitted in some cases. CLINICAL DECISIONS SHOULD BE BASED ON THE PRIMARY CLINICAL RECORDS. [facility] [employer] [facility]. provides no warranty or guarantee of the accuracy or completeness of information in this document.
[2024-05-23 09:18] LABS: Basophils Percent Auto 0.6 % (0.2-2.0); Eosinophils Absolute Auto 0.2 10^3/uL (0.0-0.7); Eosinophils Percent Auto 2.8 % (0.9-7.0); Hemoglobin 15.4 g/dL (12.0-16.0); Immature Granulocytes Abs Auto 0.02 10^3/uL (0.00-0.03); Immature Granulocytes Pct Auto 0.3 % (0.0-0.5); Lymphocytes Absolute Auto 1.9 10^3/uL (1.2-3.8); Lymphocytes Percent Auto 28.4 % (20.5-60.0); Mean Corpuscular HGB Conc 32.8 g/dL (29.9-35.2); Mean Corpuscular Hemoglobin 29.8 pg (26.7-34.0); Mean Corpuscular Volume 90.9 fL (81.0-99.0); Monocytes Absolute Auto 0.5 10^3/uL (0.3-0.8); Monocytes Percent Auto 6.9 % (1.7-12.0); Neutrophils Absolute Auto 4.2 10^3/uL (1.4-6.5); Platelet Count 321 10^3/uL (150-450); Red Blood Count 5.17 10^6/uL (4.20-5.40); Red Cell Distribution Width 12.6 % (11.0-15.0); White Blood Count 6.8 10^3/uL (4.0-11.0)
[2024-05-23 10:05] LABS: Alanine Aminotransferase 47 U/L (14-59); Albumin Globulin Ratio 1.2; Alkaline Phosphatase 86 U/L (46-116); Anion Gap 13.4; Aspartate Amino Transferase 29 U/L (15-37); BUN Creatinine Ratio 17.8; Bilirubin Total 0.6 mg/dL (0.2-1.0); Calcium 9.2 mg/dL (8.5-10.1); Carbon Dioxide 29.6 mmol/L (21.0-32.0); Chloride 103 mmol/L (98-107); Chol HDL Ratio 2.4; Cholesterol 188 mg/dL (<=200); Estimated GFR (African America >60 (>=60 mL/min/1.73m^2); Estimated GFR (Non-African Ame >60 (>=60 mL/min/1.73m^2); Globulin 3.4 g/dL; Glucose 110 mg/dL (74-106); HDL Cholesterol 78 mg/dL (40-60); Sodium 142 mmol/L (136-145); Thyroid Stimulating Hormone 2.029 uIU/mL (0.358-3.740); Total Protein 7.4 g/dL (6.4-8.2); Triglycerides 64 mg/dL (<=150); VLDL CHOLESTEROL 12.8 mg/dL
== END 2024-05-23 09:06 | disposition home or self-care (01) ==
LOC: LAB 09:06
PROVIDERS: PCP Internal Medicine; Visit Provider Internal Medicine
DX: Z00.00 Encounter for general adult medical examination without abnormal findings (principal); R53.83 Other fatigue
CPT/HCPCS: 36415; 80053; 80061; 84443; 85025